=== PATIENT | female | born 1950 | race Caucasian/White ===

== ENCOUNTER 2017-06-20 22:28 | Outpatient (CLI) | payer MEDICARE, OTHER | END 2017-06-20 22:29 | disposition critical access hospital (66) | LOC: EMS 22:28 | PROVIDERS: ATTEND Surgery | DX: R00.2 Palpitations (principal); R42 Dizziness and giddiness; R20.0 Anesthesia of skin | CPT/HCPCS: A0425; A0429 ==

== ENCOUNTER 2017-06-20 22:41 | Inpatient (IN) | payer MEDICARE, OTHER ==
[2017-06-20] MEDS ORDERED: SODIUM CHLORIDE 0.9% 1,000 ML IV ONE (22:58)
--- NOTE | 2017-06-20 23:01 | ED Physician Documentation ---
History of Present Illness - Stated complaint Stated Complaint: RAPID HR - Chief complaint Chief Complaint: Cardiac - Additonal information Additional information: hx from pt 66 female hx crohns and subsequent hypokalmia with subsequent palp has had inc diarrhea recently (no blood, no bad food, no travel) this morning had what she believes was esophogeal spasm and asthma which was quite severe she had some int palpitations in the AM and then later in the day the palpitations became very rapid with associated weakness had some ankle edema simone yesterday but better today no new meds / med changes / caffeine / decong / any stimulants at all she took potassium in case that was the cause and also 4 baby asa [employer] she takes lomotil which contains atropine but not more than her usual daily dose which does not usually cause palp Review of Systems Constitutional: denies: Fever, Chills Cardiac: reports: Chest pain / pressure, Palpitations Respiratory: reports: Dyspnea GI: reports: Diarrhea (from her crohns). denies: Abdominal Pain, Nausea, Vomiting Musculoskeletal: reports: Extremity swelling (better today) Neurologic: reports: Generalized weakness Endocrine: denies: Easy bruising / bleeding Immunocompromised: denies: Immunocompromised PD PAST MEDICAL HISTORY - Past Medical History Cardiovascular: None Respiratory: Asthma, COPD Endocrine/Autoimmune: None GI: GERD, Other : Frequency HEENT: Other Psych: Depression, Anxiety Musculoskeletal: None Derm: None - Past Surgical History General: Appendectomy, Splenectomy, Colonoscopy, EGD, Other HEENT: Tonsil/Adenoidectomy - Present Medications Home Medications: Ambulatory Orders Medication Instructions Recorded Confirmed Amitriptyline HCl 100 mg PO DAILY 02/08/16 06/21/17 Diphenoxylate HCl/Atropine 2.5 mg PO TID PRN 02/08/16 06/21/17 [Lomotil 2.5-0.025 mg Tablet] Omeprazole 40 mg PO BID 02/08/16 06/21/17 Sucralfate 1 g PO QID 02/08/16 06/21/17 Venlafaxine HCl [Venlafaxine HCl 225 mg PO DAILY 02/08/16 06/21/17 ER] Fluticasone/Salmeterol [Advair 1 each IH BID #1 disk.w.dev 05/02/16 06/21/17 250-50 Diskus] Fluticasone/Salmeterol [Advair 1 puffs PO DAILY 06/21/17 06/21/17 250-50 Diskus] Potassium Gluconate 595 mg PO PRN PRN 06/21/17 06/21/17 - Allergies Allergies/Adverse Reactions: Allergies Allergy/AdvReac Type Severity Reaction Status Date / Time erythromycin base Allergy Cramps Verified 04/29/16 13:15 Penicillins Allergy Respiratory Verified 04/29/16 13:15 Sulfa (Sulfonamide Allergy Respiratory Verified 04/29/16 13:15 Antibiotics) - Social History Does the pt smoke?: No Smoking Status: Former smoker Does the pt drink ETOH?: Yes Does the pt have substance abuse?: No - Immunizations Immunizations are current?: Yes PD ED PE NORMAL - Vitals Vital signs reviewed: Yes (tachy tachypneic hypertensive) - General General: Alert and oriented X 3 - HEENT HEENT: PERRL - Neck Neck: Supple, no meningeal sign - Cardiac Cardiac: No: RRR (rapid regular) - Respiratory Respiratory: No respiratory distress, Clear bilaterally - Abdomen Abdomen: Soft, Non tender - Derm Derm: Normal color - Extremities Extremities: No deformity, Other (mild edema simone) Results - Vitals Vitals: Vital Signs - 24 hr 06/20/17 06/20/17 06/21/17 22:43 23:19 01:02 Temperature 36.5 C Heart Rate 120 H 126 H Respiratory 26 H 18 Rate Blood Pressure 157/123 H 135/87 H Blood Pressure 131/87 H [Left] O2 Saturation 100 99 06/21/17 06/21/17 06/21/17 01:22 02:38 03:15 Temperature Heart Rate 114 H 101 H 104 H Respiratory 18 14 21 Rate Blood Pressure 140/73 H 138/80 H 145/78 H Blood Pressure [Left] O2 Saturation 98 98 99 Oxygen O2 Source Room air - EKG (time done) 2251 Rate: Rate (enter#) Rhythm: Sinus tachycardia Ischemia: Non specific changes (some coving and slight ST elev V1 with associated Q wave and LVH) - Labs Labs: Microbiology 06/21/17 03:20 Clostridium difficile (PCR) - Final Stool 06/21/17 03:20 Campylobacter Antigen Assay - Final Stool Laboratory Tests 06/20/17 06/20/17 06/20/17 23:10 23:10 23:10 WBC 7.0 RBC 3.84 L Hgb 11.6 L Hct 35.1 L MCV 91.4 MCH 30.3 MCHC 33.2 RDW 15.7 H Plt Count 349 MPV 7.8 L Neut # 3.3 Lymph # 2.7 [place] # 0.8 Eos # 0.2 Baso # 0.1 Absolute Nucleated RBC 0.00 Nucleated RBCs 0.1 D-Dimer 276.7 H Sodium 139 Potassium 3.3 L Chloride 106 Carbon Dioxide 25 Anion Gap 8.0 BUN 12 Creatinine 0.6 Estimated GFR (MDRD) 100 Glucose 73 Lactic Acid Calcium 8.8 Magnesium Troponin I B-Natriuretic Peptide TSH Free T4 Urine Color Urine Clarity Urine pH Ur Specific [place] Urine Protein Urine Glucose (UA) Urine Ketones Urine Occult Blood Urine Nitrite Urine Bilirubin Urine Urobilinogen Ur Leukocyte Esterase Urine RBC Urine WBC Ur Squamous Epith Cells Urine Bacteria Ur Microscopic Review Urine Culture Comments 06/20/17 06/20/17 06/20/17 23:10 23:10 23:10 WBC RBC Hgb Hct MCV MCH MCHC RDW Plt Count MPV Neut # Lymph # [place] # Eos # Baso # Absolute Nucleated RBC Nucleated RBCs D-Dimer Sodium Potassium Chloride Carbon Dioxide Anion Gap BUN Creatinine Estimated GFR (MDRD) Glucose Lactic Acid Calcium Magnesium Troponin I < 0.04 B-Natriuretic Peptide 606 H TSH 6.26 H Free T4 Urine Color Urine Clarity Urine pH Ur Specific [place] Urine Protein Urine Glucose (UA) Urine Ketones Urine Occult Blood Urine Nitrite Urine Bilirubin Urine Urobilinogen Ur Leukocyte Esterase Urine RBC Urine WBC Ur Squamous Epith Cells Urine Bacteria Ur Microscopic Review Urine Culture Comments 06/20/17 06/20/17 06/21/17 23:10 23:10 02:00 WBC RBC Hgb Hct MCV MCH MCHC RDW Plt Count MPV Neut # Lymph # [place] # Eos # Baso # Absolute Nucleated RBC Nucleated RBCs D-Dimer Sodium Potassium Chloride Carbon Dioxide Anion Gap BUN Creatinine Estimated GFR (MDRD) Glucose Lactic Acid Calcium Magnesium 2.0 Troponin I B-Natriuretic Peptide TSH Free T4 1.04 Urine Color COLORLESS Urine Clarity CLEAR Urine pH 6.0 Ur Specific [place] <=1.005 Urine Protein NEGATIVE Urine Glucose (UA) NEGATIVE Urine Ketones TRACE Urine Occult Blood SMALL H Urine Nitrite NEGATIVE Urine Bilirubin NEGATIVE Urine Urobilinogen 0.2 (NORMAL) Ur Leukocyte Esterase NEGATIVE Urine RBC 6-10 H Urine WBC 0-3 Ur Squamous Epith Cells FEW Squamous Urine Bacteria Moderate H Ur Microscopic Review INDICATED Urine Culture Comments INDICATED 06/21/17 03:14 WBC RBC Hgb Hct MCV MCH MCHC RDW Plt Count MPV Neut # Lymph # [place] # Eos # Baso # Absolute Nucleated RBC Nucleated RBCs D-Dimer Sodium Potassium Chloride Carbon Dioxide Anion Gap BUN Creatinine Estimated GFR (MDRD) Glucose Lactic Acid 0.8 Calcium Magnesium Troponin I B-Natriuretic Peptide TSH Free T4 Urine Color Urine Clarity Urine pH Ur Specific [place] Urine Protein Urine Glucose (UA) Urine Ketones Urine Occult Blood Urine Nitrite Urine Bilirubin Urine Urobilinogen Ur Leukocyte Esterase Urine RBC Urine WBC Ur Squamous Epith Cells Urine Bacteria Ur Microscopic Review Urine Culture Comments - Rads (name of study) CXR Radiology: See rad report (mild cardiomegaly with pulm vascular congestion) CTPA Radiology: See rad report (no PE, possible interstital edema, patchy simone atelectasis or infiltrate and small right pleural effusion, mild cardiomegaly, post op changes) PD MEDICAL DECISION MAKING - ED course ED course: unexplained tachycardia has diarrhea so considered dehydration but not better with IVF and diarrhea is not new for her had CP and SOA so checked trop which was neg and CTPA which was neg for PE TSH is actually high so not hyperthyroid no fever cough etc to suggest infectious source - CXR was neg, but CT showed possible infiltrate so will add on a lactate - but pt has no cough no sig lyte abn, waiting on UA and added stool studies even after IVF, and then lopressor, still tachy - and symptomatic will admit for further eval and management UA + for bacteria - gave ab, added blood cx, maybe that is causing the tachycardia, pt allergic to penicillin bu has taken keflex so rx rocephin d/w hospitalist who agrees to admit and req tox screen (did not get done in ER but hospitalist service can add on to urine already collected) Departure - Departure Disposition: 66 [facility] DC/Xfer Clinical Impression: Tachycardia Discharge Date/Time: 06/21/17 05:14
[2017-06-20 23:23] LABS: BASOPHILS # (AUTO) 0.1 10^3/uL (0.0-0.1); BASOPHILS % (AUTO) 1.3 %; EOSINOPHILS # (AUTO) 0.2 10^3/uL (0.0-0.7); HCT - HEMATOCRIT 35.1 % (37.0-47.0); HGB - HEMOGLOBIN 11.6 g/dL (12.0-16.0); LYMPHOCYTES # (AUTO) 2.7 10^3/uL (1.5-3.5); MEAN CORPUSCULAR HEMOGLOBIN 30.3 pg (27.0-31.0); MEAN CORPUSCULAR HGB CONC 33.2 g/dL (32.0-36.0); MEAN CORPUSCULAR VOLUME 91.4 fL (81.0-99.0); MEAN PLATELET VOLUME 7.8 fL (7.9-10.8); MONOCYTES # (AUTO) 0.8 10^3/uL (0.0-1.0); MONOCYTES % (AUTO) 11.3 %; NEUTROPHILS # (AUTO) 3.3 10^3/uL (1.5-6.6); NEUTROPHILS % (AUTO) 46.4 %; NUCLEATED RED BLOOD CELLS AUTO 0.1 /100WBC; RED BLOOD COUNT 3.84 10^6/uL (4.20-5.40); RED CELL DISTRIBUTION WIDTH 15.7 % (12.0-15.0)
[2017-06-20 23:25] LABS: CALCIUM 8.8 mg/dL (8.5-10.3); CREATININE 0.6 mg/dL (0.4-1.0); POTASSIUM 3.3 mmol/L (3.5-5.0)
--- NOTE | 2017-06-20 23:33 | XRAY Preliminary Report ---
Exam: XR Chest 1 View IMPRESSION: 1. Mild cardiomegaly with pulmonary vascular congestion. [facility] SITE ID: [id number]
--- NOTE | 2017-06-20 23:36 | XRAY Report ---
EXAM: CHEST RADIOGRAPHY EXAM DATE: 06/20/2017 11:06 PM. CLINICAL HISTORY: Chest pain. COMPARISON: 06/12/2016. TECHNIQUE: 1 view. FINDINGS: Lungs/Pleura: Pulmonary vascular congestion. Chronic left gastric angle blunting. No alveolar consoli dation or pleural effusion. No pneumothorax. Mediastinum: Mild cardiomegaly. Postoperative changes. Other: None. IMPRESSION: 1. Mild cardiomegaly with pulmonary vascular congestion. [facility] Referring Provider Line: [phone] SITE ID: [id number]
[2017-06-21] MEDS ORDERED: LOPERAMIDE 2 MG CAPSULE PO STA ×2 (00:45→03:17)
[2017-06-21] MEDS ORDERED: LOPERAMIDE 2 MG CAPSULE PO ONE ×2 (00:52→03:30)
[2017-06-21] MEDS ORDERED: METOPROLOL 5 MG/5 ML VIAL IVP STA (01:13)
[2017-06-21] MEDS ORDERED: POTASSIUM BICARB 25 MEQ TABLET PO STA (01:14)
[2017-06-21] MEDS ORDERED: POTASSIUM BICARB 25 MEQ TABLET PO ONE (01:28)
[2017-06-21] MEDS ORDERED: METOPROLOL 5 MG/5 ML VIAL IVP ONE (01:28)
[2017-06-21] MEDS ORDERED: IOPAMIDOL-300 100 ML VIAL IVP ONE (02:15)
--- NOTE | 2017-06-21 02:35 | CT Preliminary Report ---
Exam: CT Chest Angio (PE) IMPRESSION: 1. No pulmonary emboli seen. 2. Possible interstitial edema. 3. Patchy bilateral atelectasis or infiltrate and small right pleural effusion. 4. Mild cardiomegaly. 5. Postoperative changes. There appears to be esophagectomy and gastric pull-through. [facility] SITE ID: [id number]
--- NOTE | 2017-06-21 02:38 | CT Report ---
EXAM: CT ANGIOGRAM CHEST EXAM DATE: 06/21/2017 02:20 AM. CLINICAL HISTORY: Tachycardia and tachypnea. Chest pain and shortness of breath. Elevated d-dimer. COMPARISON: None. TECHNIQUE: Routine helical imaging was performed through the chest in the pulmonary arterial phase. I V Contrast: Nonionic. Reconstructions: Coronal 3-D MIP reconstructions.Sagittal and coronal. In accordance with CT protocol optimization, one or more of the following dose reduction techniques w ere utilized for this exam: automated exposure control, adjustment of mA and/or KV based on patient s ize, or use of iterative reconstructive technique. FINDINGS: Pulmonary Arteries: Diagnostic quality: Adequate through the segmental arteries. No evidence for acute or chronic pulmona ry emboli. No evidence of right heart strain. Lungs/Pleura: Biapical scarring. Possible interstitial edema. Patchy bilateral atelectasis or infiltr ate. Small right pleural effusion. No pneumothorax. Mediastinum: Mild cardiomegaly. Normal sized mediastinal lymph nodes. There appears to be esophagecto my and gastric pull-through. Thoracic Aorta: Mild atherosclerosis. Ascending aorta measures 3.5 cm. No aortic dissection. Upper Abdomen: Unremarkable. Other: Osteopenia. Scoliosis. Old bilateral rib deformities. IMPRESSION: 1. No pulmonary emboli seen. 2. Possible interstitial edema. 3. Patchy bilateral atelectasis or infiltrate and small right pleural effusion. 4. Mild cardiomegaly. 5. Postoperative changes. There appears to be esophagectomy and gastric pull-through. [facility] Referring Provider Line: [phone] SITE ID: [id number]
[2017-06-21 02:42] LABS: BILIRUBIN,URINE NEGATIVE (NEGATIVE)
[2017-06-21 02:57] LABS: UA w/ MICROSCOPIC CHARGE YES; UR CULTURE IF IND INDICATED; WBC,URINE 0-3 /HPF (0-5)
[2017-06-21] MEDS ORDERED: cefTRIAXone 1 GM in SODIUM CHLORIDE 0.9% MINIBAG 100 ML IV STA (03:04)
[2017-06-21] MEDS ORDERED: SODIUM CHLORIDE 0.9% MINIBAG 100 ML IV ONE (03:13)
[2017-06-21] MEDS ORDERED: cefTRIAXone 1 GM VIAL ONE (03:13)
[2017-06-21] MEDS ORDERED: IPRATROPIUM 0.2 MG/ML NEB INH PRN (04:39)
[2017-06-21] MEDS ORDERED: SODIUM CHLORIDE 0.9% 1,000 ML IV ONE (04:41)
[2017-06-21] MEDS ORDERED: ZOLPIDEM 5 MG TABLET PO PRN (04:42)
[2017-06-21] MEDS ORDERED: ONDANSETRON 4 MG/2 ML VIAL IVP PRN (04:42)
[2017-06-21] MEDS ORDERED: MORPHINE 2 MG/ML SYRINGE IVP PRN (04:42)
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
[2017-06-21] MEDS: PANTOPRAZOLE 40 MG TABLET PO SCH (06:49)
[2017-06-21] MEDS: SUCRALFATE 1 GM/10 ML UDC PO SCH ×4 (06:49→21:38)
[2017-06-21] MEDS: SODIUM CHLORIDE FLUSH 0.9% 10 ML SYRINGE IVP SCH ×3 (06:49→19:45)
--- NOTE | 2017-06-21 07:20 | PROVIDER PROGRESS NOTE ---
Assessment/Plan - Problem List (1) Diarrhea due to malabsorption Assessment/Plan: acute. will advance diet as tolerated and pending stool studies. patient has IBD chronic with malabsorption (2) Hypokalemia due to loss of potassium Assessment/Plan: acute. will replace with oral and monitor electrolytes in the morning. (3) COPD (chronic obstructive pulmonary disease) Qualifiers: COPD type: COPD with acute lower respiratory infection Qualified Code(s): J44.0 - Chronic obstructive pulmonary disease with acute lower respiratory infection Assessment/Plan: chronic. continue on home medications of inhalers and RT support as needed with supplemental oxygen 2 liters NC. - Current Meds Current Meds: Current Medications Generic Name Dose Route Start Last Admin Trade Name Freq PRN Reason Stop Dose Admin Ipratropium [place] 0.5 mg 06/21/17 04:39 06/21/17 05:59 Atrovent INH 0.5 mg RTQ4H PRN Administration Dyspnea Pantoprazole Sodium 40 mg 06/21/17 07:00 06/21/17 06:49 Protonix PO 40 mg QDAC SHASHI Administration Sodium Chloride 10 ml 06/21/17 06:00 06/21/17 06:49 Normal Saline Flush 0.9% IVP 10 ml Q8HR SHASHI Administration Sucralfate 1 gm 06/21/17 07:00 06/21/17 06:49 Carafate PO 1 gm 0700,1100,1600,2200 SHASHI Administration - Lab Result Lab results reviewed: Yes Fish Bone Diagrams: 06/20/17 23:10 06/20/17 23:10 Other Lab Results: Abnormal Lab Results 06/20/17 06/20/17 06/20/17 23:10 23:10 23:10 RBC 3.84 10^6/uL L 10^6/uL (4.20-5.40) Hgb 11.6 g/dL L g/dL (12.0-16.0) Hct 35.1 % L % (37.0-47.0) RDW 15.7 % H % (12.0-15.0) MPV 7.8 fL L fL (7.9-10.8) D-Dimer 276.7 ng/mL H ng/mL (200.0-255.0) Potassium 3.3 mmol/L L mmol/L (3.5-5.0) B-Natriuretic Peptide TSH Urine Occult Blood Urine RBC Urine Bacteria 06/20/17 06/20/17 06/21/17 23:10 23:10 02:00 RBC Hgb Hct RDW MPV D-Dimer Potassium B-Natriuretic Peptide 606 pg/mL H pg/mL (5-100) TSH 6.26 uIU/mL H uIU/mL (0.34-5.60) Urine Occult Blood SMALL H (NEGATIVE) Urine RBC 6-10 /HPF H /HPF (0-5) Urine Bacteria Moderate /HPF H /HPF (None Seen) - EKG Results EKG Interpreted Independently: No EKG Comparison: Unchanged from prior EKG - Diagnostic Imaging Results Diagnostic Imaging Results: Final report reviewed - Additional Planning Condition/Complexity: Stable My Orders: My Active Orders 06/21/17 07:18 CRP - C-REACTIVE PROTEIN [CHEM] Stat MAGNESIUM [CHEM] Stat 06/21/17 08:00 Saccharomyces Boulardii [Florastor] 500 mg PO BIDWM Plan Discussed with:: Patient Time Spent: 31-60 minutes (Patient is needing another 24 hours before discharge. She has difficulty eating and swallowing and nutrition has been consulted.) Subjective - Subjective Patient Reports: Feeling Better, Resting Comfortably, Other (DIFFICULTY WITH SWALLOWING) Nursing Reports: Other (COMPLAINT OF HARD TIME SWALLOWING AND NOT WANTING TO EAT ) Objective Vital Signs: Vital Signs - 24 hr 06/21/17 06/21/17 06/21/17 04:51 05:28 06:00 Temperature 37.4 C Heart Rate 105 H 104 H Heart Rate [ 97 Brachial] Respiratory 18 17 18 Rate Blood Pressure 144/72 H Blood Pressure 145/76 H [Right Brachial artery] O2 Saturation 96 97 Oxygen O2 Source Room air I&O (Last 24 Hrs): Intake and Output Totals x24h 06/19/17 06/20/17 06/21/17 23:59 23:59 23:59 Intake Total 1000 Balance 1000 General: Alert, Oriented x3, Cooperative HEENT: Atraumatic, PERRLA, EOMI Neck: Supple, No JVD, No thyromegaly Lymphatic: no adenopathy Neuro: Alert, CN 2-12 Grossly Intact, Oriented Times 3 Cardiovascular: Regular rate, Normal S1, Normal S2 Respiratory: Chest non-tender, No respiratory distress Abdomen: Soft, No tenderness, No masses Extremities: No clubbing, No cyanosis, No edema, No tenderness/swelling Skin: No rashes, No breakdown, No significant lesion - Results Results: Laboratory Results WBC 7.0 x10^3/uL (4.8-10.8) 06/20/17 23:10 RBC 3.84 10^6/uL (4.20-5.40) L 06/20/17 23:10 Hgb 11.6 g/dL (12.0-16.0) L 06/20/17 23:10 Hct 35.1 % (37.0-47.0) L 06/20/17 23:10 MCV 91.4 fL (81.0-99.0) 06/20/17 23:10 MCH 30.3 pg (27.0-31.0) 06/20/17 23:10 MCHC 33.2 g/dL (32.0-36.0) 06/20/17 23:10 RDW 15.7 % (12.0-15.0) H 06/20/17 23:10 Plt Count 349 10^3/uL (130-450) 06/20/17 23:10 MPV 7.8 fL (7.9-10.8) L 06/20/17 23:10 Neut # 3.3 10^3/uL (1.5-6.6) 06/20/17 23:10 Lymph # 2.7 10^3/uL (1.5-3.5) 06/20/17 23:10 [place] # 0.8 10^3/uL (0.0-1.0) 06/20/17 23:10 Eos # 0.2 10^3/uL (0.0-0.7) 06/20/17 23:10 Baso # 0.1 10^3/uL (0.0-0.1) 06/20/17 23:10 Absolute Nucleated RBC 0.00 x10^3/uL 06/20/17 23:10 Nucleated RBCs 0.1 /100WBC 06/20/17 23:10 D-Dimer 276.7 ng/mL (200.0-255.0) H 06/20/17 23:10 Sodium 139 mmol/L (135-145) 06/20/17 23:10 Potassium 3.3 mmol/L (3.5-5.0) L 06/20/17 23:10 Chloride 106 mmol/L (101-111) 06/20/17 23:10 Carbon Dioxide 25 mmol/L (21-32) 06/20/17 23:10 Anion Gap 8.0 (6-13) 06/20/17 23:10 BUN 12 mg/dL (6-20) 06/20/17 23:10 Creatinine 0.6 mg/dL (0.4-1.0) 06/20/17 23:10 Estimated GFR (MDRD) 100 (>89) 06/20/17 23:10 Glucose 73 mg/dL (70-100) 06/20/17 23:10 Lactic Acid 0.8 mmol/L (0.5-2.2) 06/21/17 03:14 Calcium 8.8 mg/dL (8.5-10.3) 06/20/17 23:10 Magnesium 2.0 mg/dL (1.7-2.8) 06/20/17 23:10 Troponin I < 0.04 ng/mL (<0.49) 06/21/17 06:06 B-Natriuretic Peptide 606 pg/mL (5-100) H 06/20/17 23:10 TSH 6.26 uIU/mL (0.34-5.60) H 06/20/17 23:10 Free T4 1.04 ng/dL (0.58-1.64) 06/20/17 23:10 Urine Color COLORLESS 06/21/17 02:00 Urine Clarity CLEAR (CLEAR) 06/21/17 02:00 Urine pH 6.0 PH (5.0-7.5) 06/21/17 02:00 Ur Specific [place] <=1.005 (1.002-1.030) 06/21/17 02:00 Urine Protein NEGATIVE mg/dL (NEGATIVE) 06/21/17 02:00 Urine Glucose (UA) NEGATIVE mg/dL (NEGATIVE) 06/21/17 02:00 Urine Ketones TRACE mg/dL (NEGATIVE) 06/21/17 02:00 Urine Occult Blood SMALL (NEGATIVE) H 06/21/17 02:00 Urine Nitrite NEGATIVE (NEGATIVE) 06/21/17 02:00 Urine Bilirubin NEGATIVE (NEGATIVE) 06/21/17 02:00 Urine Urobilinogen 0.2 (NORMAL) E.U./dL (NORMAL) 06/21/17 02:00 Ur Leukocyte Esterase NEGATIVE (NEGATIVE) 06/21/17 02:00 Urine RBC 6-10 /HPF (0-5) H 06/21/17 02:00 Urine WBC 0-3 /HPF (0-5) 06/21/17 02:00 Ur Squamous Epith Cells FEW Squamous (<= Few) 06/21/17 02:00 Urine Bacteria Moderate /HPF (None Seen) H 06/21/17 02:00 Ur Microscopic Review INDICATED 06/21/17 02:00 Urine Culture Comments INDICATED 06/21/17 02:00 - Procedures Procedures: Procedures EXCISION OF ASCENDING COLON, ENDO, DIAGN (02/08/16) EXCISION OF DUODENUM, ENDO, DIAGN (02/08/16) EXCISION OF LOWER ESOPHAGUS, ENDO, DIAGN (02/08/16) EXCISION OF STOMACH, ENDO, DIAGN (02/08/16)
[2017-06-21] MEDS ORDERED: SODIUM CHLORIDE INHALATION 3 ML NEB INH PRN (07:47)
[2017-06-21] MEDS ORDERED: LEVALBUTEROL 1.25 MG INH PRN (07:47)
[2017-06-21 07:52] LABS: MAGNESIUM 1.8 mg/dL (1.7-2.8)
[2017-06-21] MEDS ORDERED: VENLAFAXINE HCL 225 MG PO SCH (09:00)
[2017-06-21] MEDS ORDERED: NON FORMULARY MED (Amitriptyline Hcl [Amitriptyline Hcl] 100 MG) PO SCH (09:00)
[2017-06-21] MEDS ORDERED: SUCRALFATE 1 GM PO SCH (09:00)
[2017-06-21] MEDS: AZITHROMYCIN 250 MG TABLET PO SCH (09:28)
[2017-06-21] MEDS: VENLAFAXINE ER 75 MG CAPSULE PO SCH (09:28)
[2017-06-21] MEDS: SACCHAROMYCES BOULARDII 250 MG CAPSULE PO SCH ×2 (09:28→16:52)
[2017-06-21] MEDS: CHOLECALCIFEROL 5,000 UNIT CAPSULE PO SCH (09:28)
[2017-06-21] MEDS: HEPARIN 5,000 UNIT/ML VIAL SUBQ SCH ×2 (09:32→21:47)
[2017-06-21] MEDS: BUDESONIDE 0.5 MG/2 ML NEB INH SCH ×2 (10:57→19:40)
[2017-06-21] MEDS: FORMOTEROL FUMARATE NEB 20 MCG/2 ML INH SCH ×2 (10:57→19:40)
[2017-06-21] MEDS ORDERED: SODIUM CHLORIDE FLUSH 0.9% 10 ML SYRINGE IVP ONE (12:39)
[2017-06-21] MEDS: ALPRAZolam 0.25 MG TABLET PO PRN (17:51)
[2017-06-21] MEDS ORDERED: MAGNESIUM SULFATE 2 GRAM 50 ML IV ONE (19:00)
[2017-06-21] MEDS: AMITRIPTYLINE 25 MG TABLET PO SCH (21:37)
[2017-06-21] MEDS: SODIUM CHLORIDE FLUSH 0.9% 10 ML SYRINGE IVP PRN ×2 (21:37→22:19)
[2017-06-21] MEDS: cefTRIAXone 1 GM in SODIUM CHLORIDE 0.9% MINIBAG 100 ML IV SCH (21:37)
[2017-06-21] MEDS: ACETAMINOPHEN 325 MG TABLET PO PRN (21:55)
[2017-06-22 05:48] LABS: BASOPHILS # (AUTO) 0.1 10^3/uL (0.0-0.1); BASOPHILS % (AUTO) 1.2 %; EOSINOPHILS # (AUTO) 0.2 10^3/uL (0.0-0.7); EOSINOPHILS % (AUTO) 3.1 %; HCT - HEMATOCRIT 36.3 % (37.0-47.0); HGB - HEMOGLOBIN 12.2 g/dL (12.0-16.0); LYMPHOCYTES # (AUTO) 2.7 10^3/uL (1.5-3.5); LYMPHOCYTES % (AUTO) 46.5 %; MEAN CORPUSCULAR HEMOGLOBIN 30.9 pg (27.0-31.0); MEAN CORPUSCULAR HGB CONC 33.5 g/dL (32.0-36.0); MEAN CORPUSCULAR VOLUME 92.3 fL (81.0-99.0); MONOCYTES # (AUTO) 0.6 10^3/uL (0.0-1.0); MONOCYTES % (AUTO) 10.3 %; NEUTROPHILS # (AUTO) 2.3 10^3/uL (1.5-6.6); NEUTROPHILS % (AUTO) 38.9 %; NUCLEATED RED BLOOD CELLS AUTO 0.1 /100WBC; RED BLOOD COUNT 3.93 10^6/uL (4.20-5.40); RED CELL DISTRIBUTION WIDTH 15.7 % (12.0-15.0); UNCORRECTED WHITE BLOOD COUNT 5.8 x10^3/uL; WHITE BLOOD COUNT 5.8 x10^3/uL (4.8-10.8)
[2017-06-22 05:57] LABS: ALBUMIN/GLOBULIN RATIO 1.4 (1.0-2.2); BILIRUBIN,TOTAL 0.4 mg/dL (0.2-1.0); CALCIUM 8.8 mg/dL (8.5-10.3); CREATININE 0.5 mg/dL (0.4-1.0); MAGNESIUM 2.3 mg/dL (1.7-2.8); PHOSPHORUS 4.5 mg/dL (2.5-4.6); POTASSIUM 3.2 mmol/L (3.5-5.0); TOTAL PROTEIN 6.2 g/dL (6.7-8.2)
[2017-06-22] MEDS: PANTOPRAZOLE 40 MG TABLET PO SCH (06:04)
[2017-06-22] MEDS: ACETAMINOPHEN 325 MG TABLET PO PRN (06:04)
[2017-06-22] MEDS: SUCRALFATE 1 GM/10 ML UDC PO SCH ×4 (06:04→21:28)
[2017-06-22] MEDS: SODIUM CHLORIDE FLUSH 0.9% 10 ML SYRINGE IVP SCH ×3 (06:04→21:28)
[2017-06-22] MEDS: FORMOTEROL FUMARATE NEB 20 MCG/2 ML INH SCH ×2 (07:30→19:45)
[2017-06-22] MEDS: BUDESONIDE 0.5 MG/2 ML NEB INH SCH ×2 (07:30→19:45)
[2017-06-22] MEDS: SACCHAROMYCES BOULARDII 250 MG CAPSULE PO SCH ×2 (08:47→16:15)
[2017-06-22] MEDS: AZITHROMYCIN 250 MG TABLET PO SCH (08:48)
[2017-06-22] MEDS: CHOLECALCIFEROL 5,000 UNIT CAPSULE PO SCH (08:48)
[2017-06-22] MEDS: VENLAFAXINE ER 75 MG CAPSULE PO SCH (08:49)
[2017-06-22] MEDS: HEPARIN 5,000 UNIT/ML VIAL SUBQ SCH ×2 (08:58→21:29)
[2017-06-22] MEDS: POTASSIUM CHLORIDE 20 MEQ TABLET PO SCH (10:01)
[2017-06-22] MEDS: BUTALB/ACETAM/CAFF 50/325/40MG TABLET PO PRN ×3 (12:31→21:27)
--- NOTE | 2017-06-22 18:53 | PROVIDER PROGRESS NOTE ---
Subjective - Prog Note Date Prog Note Date: 06/22/17 Prog Note Time: 18:51 - Subjective Pt reports feeling: Improved Subjective: Patient was seen at bedside for followup for diarrhea and generalized weakness. she is eating better. she is concerned about what she should be eating when she is discharged. she has a lower potassium today but she states she has had that before. she has some mild nausea and a headache but no vomiting or diarrhea or constipation. Current Medications - Current Medications Current Medications: Active Medications Generic Name Dose Route Start Last Admin Trade Name Freq PRN Reason Stop Dose Admin Acetaminophen 650 mg 06/21/17 04:42 06/22/17 06:04 Tylenol PO 650 mg Q4HR PRN Administration Pain 1 to 4 Acetaminophen/Butalbital/Caffeine 1 tab 06/22/17 11:20 06/22/17 16:16 Fioricet PO 1 tab Q4HR PRN Administration HEADACHE Alprazolam 0.5 mg 06/21/17 17:15 06/21/17 17:51 Xanax PO 0.5 mg BID PRN Administration Anxiety Amitriptyline HCl 100 mg 06/21/17 21:00 06/21/17 21:37 Elavil PO 100 mg QPM SHASHI Administration Budesonide 0.5 mg 06/21/17 08:00 06/22/17 07:30 Pulmicort INH 0.5 mg RTBID SHASHI Administration Cholecalciferol 5,000 unit 06/21/17 09:00 06/22/17 08:48 Vitamin D3 PO 5,000 unit DAILY SHASHI Administration Formoterol Fumarate 20 mcg 06/21/17 08:00 06/22/17 07:30 Perforomist INH 20 mcg RTBID SHASHI Administration Heparin Sodium (Porcine) 5,000 unit 06/21/17 09:00 06/22/17 08:58 SUBQ 5,000 unit BID SHASHI Administration Ceftriaxone Sodium 1 gm/ 100 mls @ 200 mls/hr 06/21/17 21:00 06/21/17 21:37 Sodium Chloride IV 200 mls/hr DAILY@2100 SHASHI Administration Levalbuterol HCl 1.25 mg 06/21/17 07:47 Xopenex INH Q4H PRN Wheezing Morphine Sulfate 2 mg 06/21/17 04:42 Morphine IVP Q2H PRN Pain 8 to 10 Potassium Gluconate 1 each 06/21/17 05:33 595 Mg PO PRN PRN hypokalemia Potassium Chloride 20 meq 06/22/17 10:00 06/22/17 10:01 K-Dur PO 20 meq DAILYWM SHASHI Administration Saccharomyces Boulardii 500 mg 06/21/17 08:00 06/22/17 16:15 Florastor PO 500 mg BIDWM SHASHI Administration Sodium Chloride 10 ml 06/21/17 04:42 06/21/17 22:19 Normal Saline Flush 0.9% IVP 10 ml PRN PRN Administration NEEDED PER PROVIDER ORDERS Sodium Chloride 10 ml 06/21/17 06:00 06/22/17 13:23 Normal Saline Flush 0.9% IVP 10 ml Q8HR SHASHI Administration Sodium Chloride 3 ml 06/21/17 07:47 Normal Saline INH PRN PRN Levalbuterol treatment Sucralfate 1 gm 06/21/17 07:00 06/22/17 16:15 Carafate PO 1 gm 0700,1100,1600,2200 SHASHI Administration Venlafaxine HCl 225 mg 06/21/17 09:00 06/22/17 08:49 Effexor Er PO 225 mg DAILY SHASHI Administration Zolpidem Tartrate 5 mg 06/21/17 04:42 Ambien PO QPM PRN Insomnia Amitriptyline HCl 100 mg PO DAILY 02/08/16 Diphenoxylate HCl/Atropine [Lomotil 2.5-0.025 mg Tablet] 2.5 mg PO TID PRN 02/07 Omeprazole 40 mg PO BID 02/08/16 Sucralfate 1 g PO QID 02/08/16 Venlafaxine HCl [Venlafaxine HCl ER] 225 mg PO DAILY 02/08/16 Fluticasone/Salmeterol [Advair 250-50 Diskus] 1 puffs PO DAILY 06/21/17 Potassium Gluconate 595 mg PO PRN PRN 06/21/17 Objective - Vital Signs/Intake & Output Reviewed Vital Signs: Yes Vital Signs: Vital Signs x48h Temp Pulse Resp BP Pulse Ox 06/22/17 15:49 37.1 C 91 17 132/64 H 95 06/22/17 13:44 102 H 118/62 Intake & Output: Intake & Output 06/19/17 06/20/17 06/21/1716/17 23:59 23:59 23:59 23:59 Intake Total 2860 780 Output Total 1050 600 Balance 1810 180 - Objective General Appearance: positive: No acute distress, Alert Eyes Bilateral: positive: Normal inspection, PERRL, EOMI ENT: positive: ENT inspection nml, Pharynx nml, No signs of dehydration Neck: positive: Nml inspection, Thyroid nml, No JVD, Trachea midline Respiratory: positive: Chest non-tender, No respiratory distress, Breath sounds nml Cardiovascular: positive: Regular rate & rhythm, No murmur, No gallop Rectal: positive: Non-tender Back: positive: Nml inspection Skin: positive: Color nml, No rash, Warm, Dry Extremities: positive: Non-tender, Full ROM, Nml appearance Neurologic/Psychiatric: positive: Oriented x3, CN's nml (2-12), Motor nml, Sensation nml, Mood/affect nml (patient plans to discharge tomorrow) - Lab Results Fish Bones: 06/22/17 05:30 06/22/17 05:30 Other Labs: Lab Results x24hrs 06/22/17 06/22/17 Range/Units 05:30 05:30 WBC 5.8 (4.8-10.8) x10^3/uL RBC 3.93 L (4.20-5.40) 10^6/uL Hgb 12.2 (12.0-16.0) g/dL Hct 36.3 L (37.0-47.0) % MCV 92.3 (81.0-99.0) fL MCH 30.9 (27.0-31.0) pg MCHC 33.5 (32.0-36.0) g/dL RDW 15.7 H (12.0-15.0) % Plt Count 328 (130-450) 10^3/uL MPV 8.0 (7.9-10.8) fL Neut # 2.3 (1.5-6.6) 10^3/uL Lymph # 2.7 (1.5-3.5) 10^3/uL [place] # 0.6 (0.0-1.0) 10^3/uL Eos # 0.2 (0.0-0.7) 10^3/uL Baso # 0.1 (0.0-0.1) 10^3/uL Absolute Nucleated RBC 0.01 x10^3/uL Nucleated RBCs 0.1 /100WBC Sodium 140 (135-145) mmol/L Potassium 3.2 L (3.5-5.0) mmol/L Chloride 101 (101-111) mmol/L Carbon Dioxide 31 (21-32) mmol/L Anion Gap 8.0 (6-13) BUN 6 (6-20) mg/dL Creatinine 0.5 (0.4-1.0) mg/dL Estimated GFR (MDRD) 123 (>89) Glucose 96 (70-100) mg/dL Calcium 8.8 (8.5-10.3) mg/dL Phosphorus 4.5 (2.5-4.6) mg/dL Magnesium 2.3 (1.7-2.8) mg/dL Total Bilirubin 0.4 (0.2-1.0) mg/dL AST 26 (10-42) IU/L ALT 12 (10-60) IU/L Alkaline Phosphatase 82 (42-121) IU/L Total Protein 6.2 L (6.7-8.2) g/dL Albumin 3.6 (3.2-5.5) g/dL Globulin 2.6 (2.1-4.2) g/dL Albumin/Globulin Ratio 1.4 (1.0-2.2) Assessment/Plan - Problem List (1) Diarrhea due to malabsorption Impression: improving. continue with IVF for hydration and advance diet as tolerated. encourage oral intake. continue with probiotics (2) Hypokalemia due to loss of potassium Impression: acute. replace with oral supplementation and recheck levels in the morning lab draws (3) COPD (chronic obstructive pulmonary disease) Impression: chronic. continue with inhalers and supplemental oxygen as needed [place] Qualifiers: COPD type: COPD with acute lower respiratory infection Qualified Code(s): J44.0 - Chronic obstructive pulmonary disease with acute lower respiratory infection
[2017-06-22] MEDS: AMITRIPTYLINE 25 MG TABLET PO SCH (21:27)
[2017-06-22] MEDS: cefTRIAXone 1 GM in SODIUM CHLORIDE 0.9% MINIBAG 100 ML IV SCH (21:28)
[2017-06-22] MEDS: SODIUM CHLORIDE FLUSH 0.9% 10 ML SYRINGE IVP PRN (21:28)
[2017-06-23] MEDS: ALPRAZolam 0.25 MG TABLET PO PRN (00:40)
[2017-06-23] MEDS: SUCRALFATE 1 GM/10 ML UDC PO SCH (06:00)
[2017-06-23] MEDS: SODIUM CHLORIDE FLUSH 0.9% 10 ML SYRINGE IVP SCH (06:00)
--- NOTE | 2017-06-23 07:28 | Discharge Plan ---
Discharge Plan Disposition: 01 Home, Self Care Condition: Good Prescriptions: Ubidecarenone/Vitamin E Mixed [Lda84-Qru E 100 mg-10 Unit Sfg] 1 each PO BID # 60 capsule Magnesium Oxide [Magnesium] 400 mg PO BID #60 capsule Multivit with Calcium,Iron,Min [Multiple Vitamins For Women] 1 each PO DAILY # 30 tablet Cholecalciferol [Vitamin D3] 5,000 unit PO BID #60 capsule Alprazolam [Xanax] 0.25 mg PO QPM #10 tablet Diet: Regular (for malabsorption- avoid dairy and gluten when having symptoms of irritable bowel. Avoid all refined sugar and processed foods always.) Activity Restrictions: No Restrictions Shower Restrictions: No Driving Restrictions: No Weight Bearing: Full Weight Instruction Topics: IBS Ch Additional Instructions or Follow Up instructions: Please take all home medications as prescribed. You have been given a prescription for medication for anxiety to help when you have a IBS flair. You will need to talk to you primary care provider to help with suggestions for alternative therapy for stress management and anxiety to help reduce the incidence of IBS flairs. Eat a diet that is free of processed foods and refined sugar including sodas. Avoid eating at fast food restaurants that are high in fat and empty calories. They have alot of refined sugar and processed food products. You need to try to cook more at home using more organic food products. Avoid gluten, dairy and soy when you are having a IBS flair. These products can cause worsening inflammation and your bowel needs to rest during this time to heal. If you experience signs of abdominal pain or diarrhea, go back to the noninflammatory diet for a few days until your digestion improves. Get plenty of exercise daily. Walking is a great way to improve mood and releases endorphins that promote healing and good health. It also improves mood and induces sleep. Melatonin is also a natural sleep inducer and can be bought over the counter. Please see your primary care provider and GI specialist within the first week of discharge for followup from the diarrhea and recheck any labs that were low like your potassium level No Smoking: If you smoke, Please STOP! Call for help.
[2017-06-23] MEDS: BUDESONIDE 0.5 MG/2 ML NEB INH SCH (07:30)
[2017-06-23] MEDS: FORMOTEROL FUMARATE NEB 20 MCG/2 ML INH SCH (07:30)
--- NOTE | 2017-06-23 07:43 | DISCHARGE SUMMARY ---
"Discharge Summary Admit Date: 06/21/17 Condition at Discharge: Good Discharge Disposition: 01 Home, Self Care Discharge Facility Name: home - DIAGNOSES Admission Diagnoses: 1. Acute intractable diarrhea with chronic IBS 2. Acute hypokalemia from losses 3. Chronic anxiety, unspecified 4. Acute palpatations with electrolyte losses 5. Chronic malabsorption with malnutrition secondary to IBS Discharge Diagnoses with Status of Each Condition: 1. Acute intractable diarrhea with chronic IBS 2. Acute hypokalemia from losses from malabsorption from acute on chronic diarrhea 3. Chronic anxiety, unspecified 4. Acute palpatations with electrolyte losses from IBS 5. Chronic malabsorption with malnutrition secondary to esophagestomy and IBS 6. Chronic overuse of home medications for chronic IBS 7. UTI, possible with EColi organism - HPI History of Present Illness: hx from pt 66 year old female hx IBD and subsequent hypokalmia with subsequent palpations has had inc diarrhea recently (no blood, no bad food, no travel) this morning had what she believes was esophogeal spasm and asthma which was quite severe she had some intermittent palpitations in the AM and then later in the day the palpitations became very rapid with associated weakness had some ankle edema bilaterally yesterday but better today no new meds / med changes / caffeine / decongestants / any stimulants at all she took potassium in case that was the cause and also 4 baby asa [employer]IS she takes lomotil which contains atropine but not more than her usual daily dose which does not usually cause palpations Admitted for diarrhea and hypokalemia with palpations - CONSULTS | PROCEDURES Consultations: physical therapy, nurtritionist Procedures: CTA of chest: no PE, small pleural effusion on left poss small infiltrate Chest xray: cardiomyopathy, pleural effusions - HOSPITAL COURSE Hospital Course: Patient is a 66 year old female who was admitted with intractable diarrhea and low potassium from the ER. She has been seen for similar problems related to past esophagectomy and IBD. She had been taking immodium for the diarrhea. She was started on IVF NS for rehydration. She was provided a nutrition consult for the malabsorption and counseled on daily diet. She was given potassium supplementation both oral and IV. She takes other home medications for anxiety and pain which were continued inpatient. She was given xanax for the anxiety she had inpatient. She was counseled on avoiding refined sugars and processed foods. She verbally understood what she should be eating daily. She has a long standing history of medication and diet noncompliance and will need close supervision at home. She continued on home medications for sleep and IBD. A urinalysis was done in the ER and was contaminated that did grow out EColi that was related to the contamination of stool. She was not symptomatic. She continued on her inhaler and had duoneb treatments per RT and supplemental oxygen 2 liters NC. chest xray showed a questionable pleural effusion/ infiltrate however patient remained afebrile with no shortness of breath and no worsening white count. Her electrolytes and CBC were monitored with daily lab draws. Her potassium improved on the day of discharge and was stable enough to go home on daily oral supplemets. Her daughter was to pick her up and take her home at discharge. A phone conversation occurred between this author and the daughter the day before discharge regarding the patients diet noncompliance. daughter states she would make sure to help the patient maintain diet compliance. Patient was given several supplements at discharge including vitamin D, MVI, magnesium, potassium and CoQ10. - ALLERGIES Allergies/Adverse Reactions: Allergies Allergy/AdvReac Type Severity Reaction Status Date / Time erythromycin base Allergy Cramps Verified 04/29/16 13:15 Penicillins Allergy Respiratory Verified 04/29/16 13:15 Sulfa (Sulfonamide Allergy Respiratory Verified 04/29/16 13:15 Antibiotics) - MEDICATIONS Home Medications: Ambulatory Orders Medication Instructions Recorded Confirmed Amitriptyline HCl 100 mg PO DAILY 02/08/16 06/21/17 Sucralfate 1 g PO QID 02/08/16 06/21/17 Venlafaxine HCl [Venlafaxine HCl 225 mg PO DAILY 02/08/16 06/21/17 ER] Fluticasone/Salmeterol [Advair 1 each IH BID #1 disk.w.dev 05/02/16 06/21/17 250-50 Diskus] Fluticasone/Salmeterol [Advair 1 puffs PO DAILY 06/21/17 06/21/17 250-50 Diskus] Potassium Gluconate 595 mg PO PRN PRN 06/21/17 06/21/17 Alprazolam [Xanax] 0.25 mg PO QPM #10 tablet 06/23/17 Budesonide [Pulmicort] 0.5 mg INH RTBID neb 06/23/17 Cholecalciferol [Vitamin D3] 5,000 unit PO BID #60 capsule 06/23/17 Magnesium Oxide [Magnesium] 400 mg PO BID #60 capsule 06/23/17 Multivit with Calcium,Iron,Min 1 each PO DAILY #30 tablet 06/23/17 [Multiple Vitamins For Women] Ubidecarenone/Vitamin E Mixed 1 each PO BID #60 capsule 06/23/17 [Eei84-Hts E 100 mg-10 Unit Sfg] - PHYSICAL EXAM AT DISCHARGE General Appearance: positive: No acute distress, Alert Eyes Bilateral: positive: Normal inspection, PERRL, EOMI ENT: positive: ENT inspection nml, Pharynx nml, No signs of dehydration Neck: positive: Nml inspection, Thyroid nml, No JVD, Trachea midline Respiratory: positive: Chest non-tender, No respiratory distress, Breath sounds nml Cardiovascular: positive: No murmur, No gallop. negative: JVD present Peripheral Pulses: positive: 2+ Abdomen: positive: Non-tender, No organomegaly, Nml bowel sounds, No distention. negative: Guarding, Rebound Rectal: positive: Non-tender Back: positive: Nml inspection Skin: positive: Color nml, No rash, Warm, Dry Extremities: positive: Non-tender, Full ROM, Nml appearance Neurologic/Psychiatric: positive: Oriented x3, CN's nml (2-12), Motor nml, Sensation nml, Mood/affect nml - LABS Result Diagrams: 06/23/17 08:26 06/23/17 08:26 Other Lab Results: Abnormal Lab Results 06/21/17 06/22/17 06/22/17 06:06 05:30 05:30 RBC 3.93 10^6/uL L 10^6/uL (4.20-5.40) Hct 36.3 % L % (37.0-47.0) RDW 15.7 % H % (12.0-15.0) Potassium 3.2 mmol/L L mmol/L (3.5-5.0) Total Protein 6.2 g/dL L g/dL (6.7-8.2) TSH 6.41 uIU/mL H uIU/mL (0.34-5.60) - DIAGNOSTIC IMAGING Diagnostic Imaging Results: Final report reviewed - FOLLOW UP Follow Up: Patient was instructed to followup with primary care provider within one week of discharge. She was given instruction for diet for IBS and instructed to followup with GI within one week of discharge. Patient to go home with daughter and understands verbally instructions given. - TIME SPENT Time Spent in Discharge (Minutes): 45 (for assessment and education planning)"
[2017-06-23 07:57] VITALS: BP 129/60
[2017-06-23 09:15] LABS: BASOPHILS # (AUTO) 0.1 10^3/uL (0.0-0.1); BASOPHILS % (AUTO) 1.1 %; EOSINOPHILS # (AUTO) 0.2 10^3/uL (0.0-0.7); EOSINOPHILS % (AUTO) 4.5 %; HCT - HEMATOCRIT 35.9 % (37.0-47.0); HGB - HEMOGLOBIN 11.9 g/dL (12.0-16.0); LYMPHOCYTES # (AUTO) 2.1 10^3/uL (1.5-3.5); LYMPHOCYTES % (AUTO) 39.9 %; MEAN CORPUSCULAR HEMOGLOBIN 30.4 pg (27.0-31.0); MEAN CORPUSCULAR HGB CONC 33.3 g/dL (32.0-36.0); MEAN CORPUSCULAR VOLUME 91.3 fL (81.0-99.0); MEAN PLATELET VOLUME 8.4 fL (7.9-10.8); MONOCYTES # (AUTO) 0.6 10^3/uL (0.0-1.0); NEUTROPHILS # (AUTO) 2.3 10^3/uL (1.5-6.6); NEUTROPHILS % (AUTO) 43.5 %; NUCLEATED RED BLOOD CELLS AUTO 0.1 /100WBC; RED BLOOD COUNT 3.93 10^6/uL (4.20-5.40); RED CELL DISTRIBUTION WIDTH 15.5 % (12.0-15.0); UNCORRECTED WHITE BLOOD COUNT 5.2 x10^3/uL; WHITE BLOOD COUNT 5.2 x10^3/uL (4.8-10.8)
[2017-06-23 09:26] LABS: ALBUMIN/GLOBULIN RATIO 1.3 (1.0-2.2); BILIRUBIN,TOTAL 0.4 mg/dL (0.2-1.0); CALCIUM 8.8 mg/dL (8.5-10.3); CREATININE 0.5 mg/dL (0.4-1.0); POTASSIUM 3.3 mmol/L (3.5-5.0); TOTAL PROTEIN 6.4 g/dL (6.7-8.2)
[2017-06-23] MEDS: SACCHAROMYCES BOULARDII 250 MG CAPSULE PO SCH (10:06)
[2017-06-23] MEDS: VENLAFAXINE ER 75 MG CAPSULE PO SCH (10:06)
[2017-06-23] MEDS: HEPARIN 5,000 UNIT/ML VIAL SUBQ SCH (10:06)
[2017-06-23] MEDS: POTASSIUM CHLORIDE 20 MEQ TABLET PO SCH (10:07)
[2017-06-23] MEDS: CHOLECALCIFEROL 5,000 UNIT CAPSULE PO SCH (10:07)
[2017-06-23] MEDS ORDERED: SACCHAROMYCES BOULARDII 250 MG CAPSULE PO SCH (17:00)
== END 2017-06-23 11:33 | disposition home or self-care (01) | DRG 392 ==
LOC: EDUNIT# → ED 22:41 → MS2 06-21 04:42
PROVIDERS: ADMIT Internal Medicine; ATTEND Nurse Practitioner
DX: R00.0 Tachycardia, unspecified (principal); F32.9 Major depressive disorder, single episode, unspecified; K58.0 Irritable bowel syndrome with diarrhea; K90.9 Intestinal malabsorption, unspecified; R19.7 Diarrhea, unspecified; Z87.891 Personal history of nicotine dependence; N39.0 Urinary tract infection, site not specified; Z68.1 Body mass index [BMI] 19.9 or less, adult; E87.6 Hypokalemia; E86.0 Dehydration; F41.9 Anxiety disorder, unspecified; R00.2 Palpitations; B96.20 Unspecified Escherichia coli [E. coli] as the cause of diseases classified elsewhere; K22.0 Achalasia of cardia; J44.9 Chronic obstructive pulmonary disease, unspecified; K21.9 Gastro-esophageal reflux disease without esophagitis; R13.19 Other dysphagia; M81.0 Age-related osteoporosis without current pathological fracture; Z91.14 Patient's other noncompliance with medication regimen; Z90.49 Acquired absence of other specified parts of digestive tract; Z91.11 Patient's noncompliance with dietary regimen; Z87.01 Personal history of pneumonia (recurrent)
CPT/HCPCS: 36415; 71010; 71275; 80048; 80053; 81001; 81003; 83605; 83735; 83880; 84100; 84439; 84443; 84481; 84484; 85025; 85379; 86140; 87040; 87045; 87046; 87086; 87493; 93005; 93306; 94640; 96361; 96365; 96375; 99283; 99284; 99285

== ENCOUNTER 2017-07-27 18:25 | Emergency (ER) | payer MEDICARE, OTHER ==
[2017-07-27] MEDS ORDERED: IPRATROPIUM/ALBUTEROL 3 ML NEB INH STA (19:04)
[2017-07-27] MEDS ORDERED: IPRATROPIUM/ALBUTEROL 3 ML NEB INH ONE ×2 (19:23→19:36)
--- NOTE | 2017-07-27 20:35 | XRAY Preliminary Report ---
Exam: XR CHEST 2 VIEW PA/LAT IMPRESSION: 1. Stable, abnormal exam. Indeterminant as regards to the finding in the superior segment right lower lobe has to whether this represents chronic low-grade infection versus recurrent pneumonia. CT appea judi and stability over the past 14 months is encouraging that this is less likely to represent a se misolid low-grade lung cancer. Follow-up chest CT in 6 months recommended to continue monitoring. 2. Mild cardiomegaly. [facility] SITE ID: [id number]
[2017-07-27 20:42] LABS: BASOPHILS # (AUTO) 0.2 10^3/uL (0.0-0.1); BASOPHILS % (AUTO) 2.4 %; EOSINOPHILS # (AUTO) 0.2 10^3/uL (0.0-0.7); EOSINOPHILS % (AUTO) 3.2 %; HCT - HEMATOCRIT 36.5 % (37.0-47.0); HGB - HEMOGLOBIN 12.1 g/dL (12.0-16.0); LYMPHOCYTES # (AUTO) 1.8 10^3/uL (1.5-3.5); LYMPHOCYTES % (AUTO) 27.4 %; MEAN CORPUSCULAR HEMOGLOBIN 30.3 pg (27.0-31.0); MEAN CORPUSCULAR HGB CONC 33.1 g/dL (32.0-36.0); MEAN CORPUSCULAR VOLUME 91.8 fL (81.0-99.0); MEAN PLATELET VOLUME 7.9 fL (7.9-10.8); MONOCYTES # (AUTO) 0.7 10^3/uL (0.0-1.0); NEUTROPHILS # (AUTO) 3.8 10^3/uL (1.5-6.6); NUCLEATED RED BLOOD CELLS AUTO 0.1 /100WBC; RED BLOOD COUNT 3.98 10^6/uL (4.20-5.40); RED CELL DISTRIBUTION WIDTH 15.6 % (12.0-15.0); UNCORRECTED WHITE BLOOD COUNT 6.7 x10^3/uL; WHITE BLOOD COUNT 6.7 x10^3/uL (4.8-10.8)
--- NOTE | 2017-07-27 20:42 | XRAY Report ---
EXAM: CHEST RADIOGRAPHY EXAM DATE: 07/27/2017 08:13 p.m. CLINICAL HISTORY: Chronic obstructive pulmonary disease. Shortness of breath. Cough. COMPARISON: Chest CTA 07/07/2017. Chest CTA 06/21/2017. Two-view chest 05/30/2016. Two-view chest . TECHNIQUE: 2 views. FINDINGS: Lungs/Pleura: Overexpanded. Extensive emphysematous changes. The reticulonodular density in the super ior segment of the right upper lobe is unchanged since the 05/30/2016 chest x-ray. It was much greate r on the earliest chest x-ray available 04/29/2016. No effusions, vascular congestion nor pneumothorax. Mediastinum: Stable mild cardiomegaly. No mediastinal shift. Other: None. IMPRESSION: 1. Stable, abnormal exam. Indeterminant as regards to the finding in the superior segment of the righ t lower lobe as to whether this represents a chronic low-grade infection versus recurrent pneumonia(s ). CT appearance and stability over the past 14 months is encouraging that this is less likely to rep resent a semi-solid low-grade lung cancer. Follow-up chest CT in 6 months recommended to continue mon itoring as clinically indicated. 2. Mild cardiomegaly. [facility] Referring Provider Line: [phone] SITE ID: [id number]
[2017-07-27 20:53] LABS: ALBUMIN/GLOBULIN RATIO 1.2 (1.0-2.2); BILIRUBIN,TOTAL 0.7 mg/dL (0.2-1.0); CALCIUM 9.2 mg/dL (8.5-10.3); CREATININE 0.7 mg/dL (0.4-1.0); TOTAL PROTEIN 6.9 g/dL (6.7-8.2)
[2017-07-27] MEDS ORDERED: predniSONE 20 MG TABLET PO STA (20:57)
[2017-07-27] MEDS ORDERED: LORazepam 0.5 MG TABLET PO STA (20:57)
[2017-07-27] MEDS ORDERED: LORazepam 0.5 MG TABLET ONE (21:05)
[2017-07-27] MEDS ORDERED: predniSONE 20 MG TABLET ONE (21:05)
--- NOTE | 2017-07-27 21:58 | ED Physician Documentation ---
History of Present Illness - Stated complaint Stated Complaint: SOA - Chief complaint Chief Complaint: Resp - History obtained from History obtained from: Patient, Friend - History of Present Illness Timing: Today Pain level max: 0 Pain level now: 0 Improved by: rest, inhaler Worsened by: exertion - Additonal information Additional information: Patient is a 66-year-old female who presents to the emergency department with dyspnea today. Has a history of COPD as well as congestive heart failure. Has not been taking her Lasix daily, but takes it as needed. Did take a dose of Lasix this morning, but states still feels short of breath. Has inhalers at home but no nebulizer. Is not on any steroids. Denies any fevers. Denies any recent illnesses or travel. Has been seen here twice within the past month for same, 2 CT angiograms of the chest without evidence of pulmonary embolus. Has not had any recent immobilization. No history of blood clots. Has not complained of any leg pain or calf swelling. Review of Systems Ten Systems: 10 systems reviewed and negative Constitutional: denies: Fever, Chills Ears: denies: Ear pain Nose: denies: Rhinorrhea / runny nose, Congestion Throat: denies: Sore throat Cardiac: denies: Chest pain / pressure, Calf pain GI: denies: Abdominal Pain, Nausea, Vomiting Skin: denies: Rash Musculoskeletal: denies: Neck pain, Back pain Neurologic: denies: Headache PD PAST MEDICAL HISTORY - Past Medical History Cardiovascular: Congestive heart failure Respiratory: Asthma, COPD Endocrine/Autoimmune: None GI: GERD, Other : Frequency HEENT: Other Psych: Depression, Anxiety Musculoskeletal: None Derm: None - Past Surgical History Past Surgical History: Yes General: Appendectomy, Other HEENT: Tonsil/Adenoidectomy - Present Medications Home Medications: Ambulatory Orders Medication Instructions Recorded Confirmed Amitriptyline HCl 100 mg PO DAILY 02/08/16 07/27/17 Sucralfate 1 g PO ACHS 02/08/16 07/27/17 Multivit with Calcium,Iron,Min 1 each PO DAILY #30 tablet 06/23/17 07/27/17 [Multiple Vitamins For Women] Omeprazole 40 mg PO BID 07/07/17 07/27/17 Albuterol Sulfate [Proair Hfa 8.5 gm IH Q6H PRN 07/08/17 07/27/17 Inhaler] Calcium Citrate 600 mg PO DAILY 07/08/17 07/27/17 Cholecalciferol (Vitamin D3) 1,000 unit PO DAILY 07/08/17 07/27/17 [Vitamin D3] Diphenoxylate/Atropine [Lomotil] 1 each PO QID PRN 07/08/17 07/27/17 Fluticasone/Salmeterol [Advair 1 each IH BID 07/08/17 07/27/17 250-50 Diskus] Maria De Jesus Root 550 mg PO DAILY 07/08/17 07/27/17 Magnesium Oxide [Magnesium] 250 mg PO DAILY 07/08/17 07/27/17 Venlafaxine HCl [Venlafaxine HCl 225 mg PO DAILY PM 07/08/17 07/27/17 ER] Vitamin B Complex 1 each PO DAILY 07/08/17 07/27/17 Aspirin Chewable [St Yung 81 mg PO DAILY tablet 07/09/17 07/27/17 Aspirin] Carvedilol [Coreg] 6.25 mg PO BID #60 tablet 07/09/17 07/27/17 Furosemide 20 mg PO DAILY #60 tablet 07/09/17 07/27/17 Losartan [Cozaar] 50 mg PO DAILY #30 tablet 07/09/17 07/27/17 Prednisone 40 mg PO DAILY #10 tablet 07/27/17 Spironolactone [Aldactone] 25 mg PO DAILY 07/27/17 07/27/17 - Allergies Allergies/Adverse Reactions: Allergies Allergy/AdvReac Type Severity Reaction Status Date / Time erythromycin base Allergy Cramps Verified 07/27/17 18:51 Penicillins Allergy Respiratory Verified 07/27/17 18:51 Sulfa (Sulfonamide Allergy Respiratory Verified 07/27/17 18:51 Antibiotics) - Social History Does the pt smoke?: No Smoking Status: Never smoker Does the pt drink ETOH?: Yes Does the pt have substance abuse?: No - Immunizations Immunizations are current?: Yes - POLST Patient has POLST: No PD ED PE NORMAL - Vitals Vital signs reviewed: Yes - General General: Alert and oriented X 3, No acute distress, Well developed/nourished - HEENT HEENT: PERRL, Moist mucous membranes - Neck Neck: Supple, no meningeal sign - Cardiac Cardiac: RRR, No murmur, Strong equal pulses - Respiratory Respiratory: No respiratory distress, Other (mild wheeze B, mild decreased BS bilaterally) - Abdomen Abdomen: Soft, Non tender, Non distended - Derm Derm: Warm and dry - Extremities Extremities: Other (1+ B LE edema) - Neuro Neuro: Alert and oriented X 3 - Psych Psych: Normal mood, Normal affect Results - Vitals Vitals: Vital Signs - 24 hr 07/27/17 07/27/17 07/27/17 18:45 19:30 19:52 Temperature 37.2 C Heart Rate 103 H 99 99 Respiratory 18 22 18 Rate Blood Pressure 138/87 H 139/58 H O2 Saturation 97 98 07/27/17 07/27/17 21:09 22:02 Temperature Heart Rate 100 95 Respiratory 19 21 Rate Blood Pressure 140/78 H 125/81 H O2 Saturation 95 95 Oxygen O2 Source Room air - Labs Labs: Laboratory Tests 07/27/17 07/27/17 07/27/17 20:30 20:30 20:30 WBC 6.7 RBC 3.98 L Hgb 12.1 Hct 36.5 L MCV 91.8 MCH 30.3 MCHC 33.1 RDW 15.6 H Plt Count 377 MPV 7.9 Neut # 3.8 Lymph # 1.8 [place] # 0.7 Eos # 0.2 Baso # 0.2 H Absolute Nucleated RBC 0.01 Nucleated RBC % 0.1 Sodium 141 Potassium 3.0 L Chloride 102 Carbon Dioxide 27 Anion Gap 12.0 BUN 10 Creatinine 0.7 Estimated GFR (MDRD) 84 L Glucose 125 H Calcium 9.2 Total Bilirubin 0.7 AST 23 ALT 14 Alkaline Phosphatase 89 Troponin I < 0.04 B-Natriuretic Peptide Total Protein 6.9 Albumin 3.8 Globulin 3.1 Albumin/Globulin Ratio 1.2 Lipase 26 07/27/17 20:30 WBC RBC Hgb Hct MCV MCH MCHC RDW Plt Count MPV Neut # Lymph # [place] # Eos # Baso # Absolute Nucleated RBC Nucleated RBC % Sodium Potassium Chloride Carbon Dioxide Anion Gap BUN Creatinine Estimated GFR (MDRD) Glucose Calcium Total Bilirubin AST ALT Alkaline Phosphatase Troponin I B-Natriuretic Peptide 1051 H Total Protein Albumin Globulin Albumin/Globulin Ratio Lipase - Rads (name of study) cxr Radiology: Prelim report reviewed, EMP read contemporaneously, See rad report ( Stable abnormal exam. Indeterminate as regards to the finding the superior segment of the right lower lobe as to whether this represents a chronic low- grade infection versus recurrent pneumonia. CT appearance and stability over the past 14 months is encouraging that this is less likely to represent a semisolid low-grade lung cancer. Follow-up chest CT in 6 months recommended to continue monitoring as clinically indicated. Mild cardiomegaly) PD MEDICAL DECISION MAKING - ED course Complexity details: reviewed old records, reviewed results, re-evaluated patient , considered differential, d/w patient ED course: Patient is a 66-year-old female who presents to the emergency department with what appears to be a mixed presentation of a mild COPD exacerbation coupled with a mild CHF exacerbation. No hypoxia. No respiratory distress. Took her Lasix prior to arrival. Given steroids and breathing treatments here. Feels better. Has had 2 CT scans of the chest within the past month, will not repeat this today, clinically does not appear to have a pulmonary embolus. Will have her follow-up closely with her doctor for further evaluation and care, recommend that she continue the Lasix as prescribed. Recommend that she use this daily rather than intermittently. She was also given a dose of Ativan which seemed to help her breathing significantly. Has Xanax at home. Patient would likely benefit from a pulmonary referral as well as cardiology referral. She can obtain this from her doctor. Patient counseled regarding signs and symptoms for which I believe and urgent re-evaluation would be necessary. Patient with good understanding of and agreement to plan and is comfortable going home at this time This document was made in part using voice recognition software. While efforts are made to proofread this document, sound alike and grammatical errors may occur. Departure - Departure Disposition: 01 Home, Self Care Clinical Impression: Anxiety CHF exacerbation Qualifiers: Congestive heart failure type: unspecified congestive heart failure type Qualified Code(s): I50.9 - Heart failure, unspecified COPD (chronic obstructive pulmonary disease) Qualifiers: COPD type: unspecified COPD Qualified Code(s): J44.9 - Chronic obstructive pulmonary disease, unspecified Condition: Good Instructions: ED CHF General, ED COPD Flare Follow-Up: Rosie Lowery PA-C [Primary Care Provider] - Within 1 week Prescriptions: Prednisone 40 mg PO DAILY #10 tablet Comments: Return if you worsen. It is important that you follow-up with a repeat CAT scan of your chest in 6 months to assess the stability of the scarring versus lesion in the right upper lobe of your lung. It is also recommended that you see a billet assembler to assess your lung function and if there are any other medications that may help you. Follow-up with the poultry husbandry worker as scheduled. They may want to look at changing the carvedilol and losartan to a calcium channel tracy which may not affect your lungs as much and may help your esophageal spasms as well. Discussed this with your doctor and the poultry husbandry worker. Discharge Date/Time: 07/27/17 22:06
[2017-07-27 22:03] VITALS: BP 125/81
== END 2017-07-27 22:06 | disposition home or self-care (01) ==
LOC: ED 18:25
DX: I50.9 Heart failure, unspecified (principal); J44.9 Chronic obstructive pulmonary disease, unspecified; F41.9 Anxiety disorder, unspecified; T50.1X6A Underdosing of loop [high-ceiling] diuretics, initial encounter; Z91.128 Patient's intentional underdosing of medication regimen for other reason; J45.909 Unspecified asthma, uncomplicated; K21.9 Gastro-esophageal reflux disease without esophagitis; Z79.82 Long term (current) use of aspirin
CPT/HCPCS: 36415; 71020; 80053; 83690; 83880; 84484; 85025; 94640; 99283; 99284; A9270; J7512; J7620

== ENCOUNTER 2017-10-08 15:34 | Outpatient (CLI) | payer MEDICARE, OTHER ==
--- NOTE | 2017-10-08 17:47 | XRAY Preliminary Report ---
Exam: XR CHEST 2 VIEW X-RAY IMPRESSION: 1. Upper lung predominant COPD again noted. 2. No focal airspace consolidation. [facility] SITE ID: [id number]
--- NOTE | 2017-10-08 17:47 | XRAY Report ---
EXAM: CHEST RADIOGRAPHY EXAM DATE: 10/08/2017 04:42 PM. CLINICAL HISTORY: Chronic copd. COMPARISON: 07/27/2017. TECHNIQUE: 2 views. FINDINGS: Lungs/Pleura: Large lung volumes with lucent upper lungs compatible with COPD. No new focal airspace consolidation. Persistent mild left basal pleural thickening. No pneumothorax. Mediastinum: Unchanged heart size and mediastinum. Other: None. IMPRESSION: 1. Upper lung predominant COPD again noted. 2. No focal airspace consolidation. [facility] Referring Provider Line: [phone] SITE ID: [id number]
== END 2017-10-08 15:35 | disposition home or self-care (01) ==
LOC: DI.N 15:34
PROVIDERS: ATTEND Specialist
DX: J44.9 Chronic obstructive pulmonary disease, unspecified (principal)
CPT/HCPCS: 71046

== ENCOUNTER 2017-11-30 16:45 | Outpatient (CLI) | payer MEDICARE, OTHER ==
[2017-11-30 17:02] LABS: BASOPHILS # (AUTO) 0.1 10^3/uL (0.0-0.1); BASOPHILS % (AUTO) 1.2 %; EOSINOPHILS # (AUTO) 0.1 10^3/uL (0.0-0.7); EOSINOPHILS % (AUTO) 2.4 %; HGB - HEMOGLOBIN 12.6 g/dL (12.0-16.0); LYMPHOCYTES % (AUTO) 33.9 %; MEAN CORPUSCULAR HEMOGLOBIN 31.8 pg (27.0-31.0); MEAN CORPUSCULAR HGB CONC 34.2 g/dL (32.0-36.0); MEAN PLATELET VOLUME 7.4 fL (7.9-10.8); MONOCYTES # (AUTO) 0.5 10^3/uL (0.0-1.0); MONOCYTES % (AUTO) 8.3 %; NEUTROPHILS # (AUTO) 3.2 10^3/uL (1.5-6.6); NEUTROPHILS % (AUTO) 54.2 %; PLT - PLATELET COUNT 368 10^3/uL (130-450); RED BLOOD COUNT 3.96 10^6/uL (4.20-5.40); RED CELL DISTRIBUTION WIDTH 14.5 % (12.0-15.0); WHITE BLOOD COUNT 5.8 x10^3/uL (4.8-10.8)
[2017-11-30 17:13] LABS: ALBUMIN 4.3 g/dL (3.2-5.5); ALBUMIN/GLOBULIN RATIO 1.5 (1.0-2.2); BILIRUBIN,TOTAL 0.5 mg/dL (0.2-1.0); CALCIUM 9.4 mg/dL (8.5-10.3); CREATININE 0.7 mg/dL (0.4-1.0); TOTAL PROTEIN 7.2 g/dL (6.7-8.2)
== END 2017-11-30 16:46 | disposition home or self-care (01) ==
LOC: LAB 16:45
PROVIDERS: ATTEND Specialist
DX: I10 Essential (primary) hypertension (principal); I50.1 Left ventricular failure, unspecified; J44.9 Chronic obstructive pulmonary disease, unspecified
CPT/HCPCS: 80053; 83880; 85025

== ENCOUNTER 2017-12-30 14:29 | Outpatient (CLI) | payer MEDICARE, OTHER ==
--- NOTE | 2017-12-31 13:34 | Mammography Report ---
DIGITAL SCREENING MAMMOGRAM: 12/30/2017 CLINICAL INDICATION: A 67-year-old with a history of benign biopsy for screening. COMPARISON: 03/2016, 03/2015, 07/2013, 05/2012, 04/2011, 10/2009. TECHNIQUE: Routine CC and MLO projections were obtained of the breasts. FINDINGS: The breasts again demonstrate scattered fibroglandular densities bilaterally. Coarse and punctate, typically benign calcifications are present. In the right upper inner central breast, there is possible architectural distortion. Further evaluation with spot compression views and possible ultrasound is recommended. No mammographically suspicious findings are appreciated in the left breast. IMPRESSION: INCOMPLETE EXAMINATION. RECOMMENDATION: Additional evaluation of the right breast as above. BIRADS CATEGORY 0 - INCOMPLETE. STANDARD QUALIFYING STATEMENTS: 1. This examination was reviewed with the aid of Computer-Aided Detection (CAD). 2. A negative or benign imaging report should not delay biopsy if clinically suspicious findings are present. Consider surgical consultation if warranted. More than 5% of cancers are not identified by imaging. 3. Dense breasts may obscure an underlying neoplasm. TD: 12/31/2017 13:33
== END 2017-12-30 14:30 | disposition home or self-care (01) ==
LOC: DI.N 14:29
PROVIDERS: ATTEND Physician Assistant
DX: Z12.31 Encounter for screening mammogram for malignant neoplasm of breast (principal); R92.8 Other abnormal and inconclusive findings on diagnostic imaging of breast
CPT/HCPCS: 77067

== ENCOUNTER 2018-01-20 10:45 | Outpatient (CLI) | payer MEDICARE, OTHER ==
--- NOTE | 2018-01-20 11:31 | Mammography Report ---
DIAGNOSTIC RIGHT MAMMOGRAM: 01/20/2018 CLINICAL INDICATION: Possible architectural distortion right inner central breast. TECHNIQUE: Right true lateral and spot compression views. COMPARISON: 12/30/2017, 03/21/2016, 03/18/2015, 07/13/2013, 06/05/2012, 04/20/2011, 11/05/2009. FINDINGS: The right breast again demonstrates scattered fibroglandular densities. The possible architectural distortion seen on the screening views does not persist with additional compression. No underlying mass lesion is seen. Coarse and punctate, typically benign calcifications are present. IMPRESSION: BENIGN FINDINGS. RECOMMENDATION: Routine annual screening unless otherwise clinically indicated. BIRADS CATEGORY 2 - BENIGN FINDINGS. STANDARD QUALIFYING STATEMENTS: 1. This examination was reviewed with the aid of Computer-Aided Detection (CAD). 2. A negative or benign imaging report should not delay biopsy if clinically suspicious findings are present. Consider surgical consultation if warranted. More than 5% of cancers are not identified by imaging. 3. Dense breasts may obscure an underlying neoplasm. TD: 01/20/2018 11:30
== END 2018-01-20 10:46 | disposition home or self-care (01) ==
LOC: DI 10:45
PROVIDERS: ATTEND Physician Assistant
DX: R92.8 Other abnormal and inconclusive findings on diagnostic imaging of breast (principal)

== ENCOUNTER 2018-03-09 16:27 | Emergency (ER) | payer MEDICARE, OTHER ==
--- NOTE | 2018-03-09 17:21 | ED Physician Documentation ---
PD HPI DYSPNEA - Stated complaint Stated Complaint: BP ISSUES - Chief complaint Chief Complaint: General - History obtained from History obtained from: Patient - History of Present Illness Timing - onset: How many days ago (few) Timing - onset during: Light activity, Exertion Timing - duration: Days Timing - details: Gradual onset, Still present, Waxing and waning Inciting event(s): URI (has had some cough and congestion). No: Out of meds Improved by: Rest Worsened by: Exertion, Coughing Associated symptoms: Cough, Wheezing, Chest pain / discomfort. No: Fever, Palpitations, Bilateral edema Similar symptoms before: Diagnosis (CHF and COPD) Review of Systems Constitutional: reports: Myalgias, Fatigue. denies: Fever Nose: reports: Congestion. denies: Rhinorrhea / runny nose Throat: denies: Sore throat Cardiac: denies: Palpitations, Pedal edema, Calf pain Respiratory: reports: Dyspnea, Cough, Wheezing. denies: Hemoptysis GI: denies: Abdominal Pain, Nausea, Vomiting, Diarrhea Skin: denies: Rash PD PAST MEDICAL HISTORY - Past Medical History Cardiovascular: Congestive heart failure Respiratory: Asthma, COPD Endocrine/Autoimmune: None GI: GERD, Other : Frequency HEENT: Other Psych: Depression, Anxiety Musculoskeletal: None Derm: None - Past Surgical History Past Surgical History: Yes General: Appendectomy, Other HEENT: Tonsil/Adenoidectomy - Present Medications Home Medications: Ambulatory Orders Medication Instructions Recorded Confirmed Amitriptyline HCl 100 mg PO DAILY 02/08/16 07/27/17 Sucralfate 1 g PO ACHS 02/08/16 07/27/17 Multivit with Calcium,Iron,Min 1 each PO DAILY #30 tablet 06/23/17 07/27/17 [Multiple Vitamins For Women] Omeprazole 40 mg PO BID 07/07/17 07/27/17 Albuterol Sulfate [Proair Hfa 8.5 gm IH Q6H PRN 07/08/17 07/27/17 Inhaler] Calcium Citrate 600 mg PO DAILY 07/08/17 07/27/17 Cholecalciferol (Vitamin D3) 1,000 unit PO DAILY 07/08/17 07/27/17 [Vitamin D3] Diphenoxylate/Atropine [Lomotil] 1 each PO QID PRN 07/08/17 07/27/17 Fluticasone/Salmeterol [Advair 1 each IH BID 07/08/17 07/27/17 250-50 Diskus] Maria De Jesus Root 550 mg PO DAILY 07/08/17 07/27/17 Magnesium Oxide [Magnesium] 250 mg PO DAILY 07/08/17 07/27/17 Venlafaxine HCl [Venlafaxine HCl 225 mg PO DAILY PM 07/08/17 07/27/17 ER] Vitamin B Complex 1 each PO DAILY 07/08/17 07/27/17 Aspirin Chewable [St Yung 81 mg PO DAILY tablet 07/09/17 07/27/17 Aspirin] Carvedilol [Coreg] 6.25 mg PO BID #60 tablet 07/09/17 07/27/17 Furosemide 20 mg PO DAILY #60 tablet 07/09/17 07/27/17 Losartan [Cozaar] 50 mg PO DAILY #30 tablet 07/09/17 07/27/17 Spironolactone [Aldactone] 25 mg PO DAILY 07/27/17 07/27/17 predniSONE [Prednisone] 40 mg PO DAILY #10 tablet 07/27/17 Albuterol Sulf [Ventolin Hfa 1 - 2 puffs INH Q4HR PRN #1 inhaler 03/09/18 Inhaler] Benzonatate [Tessalon] 100 mg PO TID PRN #25 capsule 03/09/18 Dexamethasone [Decadron] 4 mg PO DAILY #5 tablet 03/09/18 Doxycycline Monohydrate 100 mg PO BID #14 tablet 03/09/18 - Allergies Allergies/Adverse Reactions: Allergies Allergy/AdvReac Type Severity Reaction Status Date / Time erythromycin base Allergy Cramps Verified 03/09/18 17:06 Penicillins Allergy Respiratory Verified 03/09/18 17:06 Sulfa (Sulfonamide Allergy Respiratory Verified 03/09/18 17:06 Antibiotics) - Social History Does the pt smoke?: No Smoking Status: Never smoker Does the pt drink ETOH?: Yes Does the pt have substance abuse?: No - Family History Family history: reports: Non contributory - Immunizations Immunizations are current?: Yes - POLST Patient has POLST: No PD ED PE NORMAL - Vitals Vital signs reviewed: Yes - General General: Alert and oriented X 3, No acute distress, Well developed/nourished - HEENT HEENT: Pharynx benign - Neck Neck: Supple, no meningeal sign, No adenopathy - Cardiac Cardiac: RRR, No murmur - Respiratory Respiratory: No: Clear bilaterally (diffuse wheezing, without congestion) - Back Back: No CVA TTP - Derm Derm: Normal color, Warm and dry - Extremities Extremities: No deformity, No tenderness to palpate, Normal ROM s pain, No edema , No calf tenderness / cord - Neuro Neuro: Alert and oriented X 3, No motor deficit, Normal speech Results - Vitals Vitals: Oxygen O2 Source Room air - EKG (time done) 17:18 Rate: Rate (enter#) (104) Rhythm: Sinus tachycardia, NSR [place]: Normal Intervals: Normal AL QRS: Normal Ischemia: Normal ST segments. No: ST elevation c/w ischemia, ST depression - Labs Labs: Microbiology 03/09/18 18:10 Urine Culture - Final Urine,Clean Catch Escherichia Coli Laboratory Tests 03/09/18 03/09/18 03/09/18 17:55 18:10 18:19 WBC 6.9 RBC 3.99 L Hgb 12.6 Hct 38.5 MCV 96.5 MCH 31.6 H MCHC 32.8 RDW 14.5 Plt Count 448 MPV 7.2 L Neut # (Auto) 4.7 Lymph # (Auto) 1.2 L [place] # (Auto) 0.7 Eos # (Auto) 0.2 Baso # (Auto) 0.1 Absolute Nucleated RBC 0.01 Nucleated RBC % 0.1 Sodium 135 Potassium 3.5 Chloride 97 L Carbon Dioxide 24 Anion Gap 14.0 H BUN 16 Creatinine 0.9 Estimated GFR (MDRD) 62 L Glucose 115 H Calcium 9.3 Magnesium 2.0 Total Bilirubin 0.7 AST 41 ALT 32 Alkaline Phosphatase 120 Troponin I B-Natriuretic Peptide Total Protein 7.8 Albumin 4.4 Globulin 3.4 Albumin/Globulin Ratio 1.3 Lipase 28 Urine Color LT. YELLOW Urine Clarity HAZY Urine pH 5.0 Ur Specific [place] <=1.005 Urine Protein NEGATIVE Urine Glucose (UA) NEGATIVE Urine Ketones NEGATIVE Urine Occult Blood TRACE-INTA Urine Nitrite NEGATIVE Urine Bilirubin NEGATIVE Urine Urobilinogen 0.2 (NORMAL) Ur Leukocyte Esterase SMALL H Urine RBC 0-5 Urine WBC 6-10 H Urine WBC Clumps PRESENT Ur Squamous Epith Cells RARE Squamous Urine Bacteria Few Ur Microscopic Review INDICATED Urine Culture Comments INDICATED 03/09/18 03/09/18 18:19 18:19 WBC RBC Hgb Hct MCV MCH MCHC RDW Plt Count MPV Neut # (Auto) Lymph # (Auto) [place] # (Auto) Eos # (Auto) Baso # (Auto) Absolute Nucleated RBC Nucleated RBC % Sodium Potassium Chloride Carbon Dioxide Anion Gap BUN Creatinine Estimated GFR (MDRD) Glucose Calcium Magnesium Total Bilirubin AST ALT Alkaline Phosphatase Troponin I < 0.04 B-Natriuretic Peptide 35 Total Protein Albumin Globulin Albumin/Globulin Ratio Lipase Urine Color Urine Clarity Urine pH Ur Specific [place] Urine Protein Urine Glucose (UA) Urine Ketones Urine Occult Blood Urine Nitrite Urine Bilirubin Urine Urobilinogen Ur Leukocyte Esterase Urine RBC Urine WBC Urine WBC Clumps Ur Squamous Epith Cells Urine Bacteria Ur Microscopic Review Urine Culture Comments PD MEDICAL DECISION MAKING - ED course Complexity details: reviewed results (does not seem CHF nor ACS. Findings c/w COPD exac, with wheezing. ), considered differential, d/w patient Departure - Departure Disposition: 01 Home, Self Care Clinical Impression: Asthma exacerbation in COPD Dyspnea Qualifiers: Dyspnea type: dyspnea on exertion Qualified Code(s): R06.09 - Other forms of dyspnea Clinical Impression: (Ruled Out): CHF exacerbation Condition: Stable Record reviewed to determine appropriate education?: Yes Instructions: ED COPD Flare Follow-Up: Rosie Lowery PA-C [Primary Care Provider] - Prescriptions: Albuterol Sulf [Ventolin Hfa Inhaler] 1 - 2 puffs INH Q4HR PRN #1 inhaler PRN Reason: Shortness Of Air/Wheezing Benzonatate [Tessalon] 100 mg PO TID PRN #25 capsule PRN Reason: Cough Dexamethasone [Decadron] 4 mg PO DAILY #5 tablet Doxycycline Monohydrate 100 mg PO BID #14 tablet Comments: Continue usual medications. Use your albuterol inhaler 2-3 puffs 4 times a day for the next 7-10 days and then extra times as needed. There is no signs of congestive failure on your lab tests or x-ray or clinically. It appears to be an exacerbation of the COPD. For this to take Decadron steroid daily for 5 more days. Use Tessalon if needed for cough. This may be just a viral illness but in the setting of COPD there may be a better outcome and improvement with antibiotics as well and so take doxycycline twice daily for a week. Recheck with your primary care later this week, call tomorrow for an appointment. Return sooner if worsening. Discharge Date/Time: 03/09/18 20:02
[2018-03-09] MEDS ORDERED: DEXAMETHASONE 10 MG/ML VIAL IVP STA (17:33)
[2018-03-09] MEDS ORDERED: IPRATROPIUM/ALBUTEROL 3 ML NEB INH STA (17:33)
[2018-03-09] MEDS ORDERED: BENZONATATE 100 MG CAPSULE PO STA (17:33)
[2018-03-09 18:01] LABS: BASOPHILS # (AUTO) 0.1 10^3/uL (0.0-0.1); BASOPHILS % (AUTO) 1.2 %; EOSINOPHILS # (AUTO) 0.2 10^3/uL (0.0-0.7); EOSINOPHILS % (AUTO) 2.5 %; HGB - HEMOGLOBIN 12.6 g/dL (12.0-16.0); LYMPHOCYTES # (AUTO) 1.2 10^3/uL (1.5-3.5); LYMPHOCYTES % (AUTO) 17.1 %; MEAN CORPUSCULAR HEMOGLOBIN 31.6 pg (27.0-31.0); MEAN CORPUSCULAR HGB CONC 32.8 g/dL (32.0-36.0); MEAN CORPUSCULAR VOLUME 96.5 fL (81.0-99.0); MEAN PLATELET VOLUME 7.2 fL (7.9-10.8); MONOCYTES # (AUTO) 0.7 10^3/uL (0.0-1.0); MONOCYTES % (AUTO) 10.7 %; NEUTROPHILS # (AUTO) 4.7 10^3/uL (1.5-6.6); NEUTROPHILS % (AUTO) 68.5 %; PLT - PLATELET COUNT 448 10^3/uL (130-450); RED BLOOD COUNT 3.99 10^6/uL (4.20-5.40); RED CELL DISTRIBUTION WIDTH 14.5 % (12.0-15.0); WHITE BLOOD COUNT 6.9 x10^3/uL (4.8-10.8)
--- NOTE | 2018-03-09 18:02 | XRAY Preliminary Report ---
Exam: XR CHEST 2 VIEW X-RAY IMPRESSION: 1. Postoperative changes at the left lung base. Probable COPD. Biapical scarring is unchanged. 2. Probable left basilar pleural thickening or scarring given the stability. No new effusion or pneum othorax. No new consolidation. [facility] SITE ID: [id number]
--- NOTE | 2018-03-09 18:04 | XRAY Report ---
EXAM: CHEST RADIOGRAPHY EXAM DATE: 03/09/2018 05:44 PM. CLINICAL HISTORY: Shortness of air. COMPARISON: 10/08/2007. TECHNIQUE: 2 views. FINDINGS: Lungs/Pleura: Biapical pleural thickening. Blunting of the left costophrenic angle is unchanged. Post operative changes at the left base. Coarse interstitial prominence and bronchial wall thickening note d. No new consolidation or pneumothorax. Mediastinum: Stable cardiac silhouette. Air-fluid level in the lower thorax in the midline is consist ent with the patient's gastric pull-through. Other: Convex to the right curvature of the mid to upper lumbar spine unchanged. Compression fractures noted in the upper lumbar spine. IMPRESSION: 1. Postoperative changes at the left lung base. Probable COPD. Biapical scarring is unchanged. 2. Probable left basilar pleural thickening or scarring given the stability. No new effusion or pneum othorax. No new consolidation. [facility] Referring Provider Line: [phone] SITE ID: [id number]
[2018-03-09 18:25] LABS: BILIRUBIN,URINE NEGATIVE (NEGATIVE); GLUCOSE, URINE (UA) NEGATIVE (NEGATIVE); KETONES,URINE (UA) NEGATIVE (NEGATIVE); LEUKOCYTE ESTERASE, URINE SMALL (NEGATIVE); NITRITE,URINE NEGATIVE (NEGATIVE); OCCULT BLOOD,URINE TRACE-INTA (NEGATIVE); PROTEIN,URINE NEGATIVE (NEGATIVE); UROBILINOGEN,URINE 0.2 (NORMAL) E.U./dL (NORMAL)
[2018-03-09 18:26] LABS: CLARITY,URINE HAZY (CLEAR)
[2018-03-09 18:46] LABS: ALBUMIN 4.4 g/dL (3.2-5.5); ALBUMIN/GLOBULIN RATIO 1.3 (1.0-2.2); BILIRUBIN,TOTAL 0.7 mg/dL (0.2-1.0); CALCIUM 9.3 mg/dL (8.5-10.3); CREATININE 0.9 mg/dL (0.4-1.0); TOTAL PROTEIN 7.8 g/dL (6.7-8.2)
[2018-03-09 18:50] LABS: BACTERIA,URINE Few /HPF (None Seen); RBC,URINE 0-5 /HPF (0-5); SQUAMOUS EPITHELIAL CELL,UR RARE Squamous (<= Few); WBC CLUMPS,URINE PRESENT
[2018-03-09] MEDS ORDERED: DOXYCYCLINE 100 MG TABLET PO STA (19:39)
[2018-03-09 19:58] VITALS: BP 121/70
== END 2018-03-09 20:02 | disposition home or self-care (01) ==
LOC: ED 16:27
DX: J44.1 Chronic obstructive pulmonary disease with (acute) exacerbation (principal); J45.998 Other asthma; I50.9 Heart failure, unspecified; K21.9 Gastro-esophageal reflux disease without esophagitis; Z79.82 Long term (current) use of aspirin
CPT/HCPCS: 36415; 71046; 80053; 81001; 83690; 83735; 83880; 84484; 85025; 87086; 87181; 93005; 94640; 96374; 99283; 99284; A9270; 81003

== ENCOUNTER 2018-05-27 13:12 | Outpatient (CLI) | payer MEDICARE, OTHER ==
--- NOTE | 2018-05-27 14:17 | XRAY Report ---
Procedure Date: 05/27/2018 Accession Number: [id number] / [id number] Procedure: XR - Chest 2 View X-Ray CPT Code: 06744 FULL RESULT: EXAM: CHEST RADIOGRAPHY EXAM DATE: 05/27/2018 01:58 PM. CLINICAL HISTORY: Chronic obstructive pulmonary disease, unspecified. COMPARISON: Chest radiograph 03/09/2018, 10/08/2017 and 07/27/2017. CT pulmonary angiogram 07/07/2017. TECHNIQUE: 2 views. FINDINGS: Lungs/Pleura: Pulmonary hyperinflation with chronic left costophrenic angle blunting. No new or worsening focal airspace opacity. No definite pleural effusion. No pneumothorax with biapical pleural-parenchymal scarring. Similar right perihilar parenchymal scarring. Bronchial wall thickening as before suggesting chronic bronchitis. 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 Convex right curvature of the lumbar spine. Similar chronic severe compression deformity of L1. IMPRESSION: No acute cardiopulmonary abnormality with similar chronic findings including COPD and chronic lung scarring. [facility]
== END 2018-05-27 13:13 | disposition home or self-care (01) ==
LOC: DI 13:12
PROVIDERS: ATTEND Specialist
DX: J44.9 Chronic obstructive pulmonary disease, unspecified (principal)
CPT/HCPCS: 71046

== ENCOUNTER 2019-04-16 15:09 | Outpatient (CLI) | payer MEDICARE, OTHER ==
--- NOTE | 2019-04-20 08:25 | DEXA Report ---
Reason: ENCTR FOR SCREENING FOR OSTEOPOROSIS, MENOPAUSE Procedure Date: 04/16/2019 Accession Number: [id number] / [id number] Procedure: DEX - Dexa Spine and/or Hip CPT Code: FULL RESULT: EXAM: Dexa Spine and/or Hip DATE: 04/16/2019 4:26 PM CLINICAL HISTORY: ENCTR FOR SCREENING FOR OSTEOPOROSIS, MENOPAUSE TECHNIQUE: Dual energy x-ray absorptiometry (DXA) was performed on a [employer] System. Regions measured are the AP Spine, femoral neck, and if needed forearm. COMPARISON: 03/21/2016. In accordance with the International Society for Clinical Densitometry (ISCD) guidelines, data from previous exams may be reanalyzed using current recommendations and techniques. This is done to allow a more accurate basis for comparison with the current study. FINDINGS: The data for the lumbar spine is as follows: BMD (g/cm/cm) T-SCORE Z-SCORE REGION L1 L2 1.195 0.0 2.0 L3 1.362 1.3 3.3 L4 1.170 -0.3 1.7 TOTAL 1.243 0.4 2.3 NOTE: All evaluable vertebrae are used for classification The data for the hip is as follows: BMD (g/cm/cm) T-SCORE Z-SCORE REGION Neck 0.794 -1.8 0.1 TOTAL 0.755 -2.0 -0.4 NOTE: The femoral neck or total proximal femur, whichever is lowest, is used for classification. DXA RESULTS SUMMARY: Spine SCAN DATE AGE BMD CHANGE VS CHANGE VS PREVIOUS PREVIOUS % 4/16/2019 [age] 1.243 0.034* 2.8* 03/21/2016 [age] 1.209 * Denotes significant change at the 95% confidence level. Denotes dissimilar scan types or analysis methods. DXA RESULTS SUMMARY: Hip SCAN DATE AGE BMD CHANGE VS CHANGE VS PREVIOUS PREVIOUS % 4/16/2019 [age] 0.755 -0.020 -2.6 03[age]21/2016 [age] 0.775 * Denotes significant change at the 95% confidence level. Denotes dissimilar scan types or analysis methods. IMPRESSION: THE WHO CLASSIFICATION BASED ON THE INTERNATIONAL REFERENCE STANDARD IS OSTEOPENIA. THE FRACTURE RISK IS INCREASED. RECOMMENDATION: Patients with diagnosis of osteoporosis or osteopenia should have regular bone mineral density assessment. For those eligible for Medicare, routine testing is allowed once every 2 years. Testing frequency can be increased for patients who have rapidly progressing disease or for those who are receiving medical therapy to restore bone mass. COMMENT: World Health Organization (WHO) definitions for osteoporosis and osteopenia: NORMAL BMD: T-score at -1.0 or higher, fracture risk is low OSTEOPENIA BMD: T-score between -1.0 and -2.5, fracture risk is increased. OSTEOPOROSIS BMD: T-score at -2.5 or lower, fracture risk is high. National Osteoporosis Foundation recommends: 1. Obtain adequate dietary calcium (at least 1200 mg per day) and vitamin D (400-800 international units per day). 2. Participate, as appropriate, in regular weightbearing and muscle-strengthening exercise. 3. Avoid tobacco use and reduce alcohol and caffeine intake. 4. For more detailed information see the website at www.NOF.org.
== END 2019-04-16 15:10 | disposition home or self-care (01) ==
LOC: DI 15:09
PROVIDERS: ATTEND Family Medicine
DX: Z13.820 Encounter for screening for osteoporosis (principal); M85.89 Other specified disorders of bone density and structure, multiple sites; Z78.0 Asymptomatic menopausal state
CPT/HCPCS: 77080

== ENCOUNTER 2019-04-16 15:10 | Outpatient (CLI) | payer MEDICARE, OTHER ==
--- NOTE | 2019-04-20 13:12 | Mammography Report ---
Reason: SCREENING MAMMO Procedure Date: 04/16/2019 Accession Number: [id number] / [id number] Procedure: ULYSSES - Screening Mammo w/Chen[place] CPT Code: FULL RESULT: EXAM: Screening Mammo w/[place] DATE: 04/16/2019 4:37 PM CLINICAL HISTORY: Screening encounter. History of early menses. TECHNIQUE: (B) - Bilateral CC, laterally exaggerated CC, MLO views were obtained. COMPARISON: 01/20/2018 through 07/13/2013. PARENCHYMAL PATTERN: (D) - The breast(s) demonstrate(s) heterogeneously dense fibroglandular parenchyma. FINDINGS: Typically benign vascular calcifications are noted. There are no suspicious masses, calcifications, or areas of distortion. IMPRESSION: Benign findings. BI-RADS category 2. RECOMMENDATION: (ANNUAL) - Recommend routine annual screening mammography. BI-RADS CATEGORY: (2) - Benign Findings. STANDARD QUALIFYING STATEMENTS: 1. This examination was not reviewed with the aid of Computer-Aided Detection (CAD). 2. A negative or benign imaging report should not preclude biopsy if clinically suspicious findings are present. 3. Dense breasts may obscure an underlying neoplasm. 4. This examination was reviewed the aid of 3D breast imaging (tomosynthesis).
== END 2019-04-16 15:11 | disposition home or self-care (01) ==
LOC: DI 15:10
PROVIDERS: ATTEND Family Medicine
DX: Z12.31 Encounter for screening mammogram for malignant neoplasm of breast (principal)
CPT/HCPCS: 77063; 77067

== ENCOUNTER 2019-04-21 11:06 | Outpatient (CLI) | payer MEDICARE, OTHER ==
--- NOTE | 2019-04-21 14:51 | XRAY Report ---
Reason: COUGH,SOB Procedure Date: 04/21/2019 Accession Number: [id number] / [id number] Procedure: XR - Chest 2 View X-Ray CPT Code: 56123 FULL RESULT: EXAM: CHEST RADIOGRAPHY EXAM DATE: 04/21/2019 11:43 AM. CLINICAL HISTORY: Cough, shortness of breath. COMPARISON: CHEST 2 VIEW 05/27/2018 1:51 PM CHEST ANGIO 07/07/2017 9:19 AM. TECHNIQUE: 2 views. FINDINGS: Lungs/Pleura: No focal airspace consolidation. High lung volumes with flattening of diaphragms, in keeping with obstructive pulmonary disease. Blunting of the left costophrenic angle is again seen, small pleural effusion. No sizable pneumothorax. Calcific thickening of the lung apices is noted, soft tissue thickening in this region was seen on the 2017 CT where no pleural calcifications were identified in the area but pleural plaquing is clearly demonstrated with calcifications in other regions. Mediastinum: Postsurgical changes are seen along the right paramediastinal border and underneath the left hemidiaphragm. Cardiomediastinal silhouette is unchanged from prior, no cardiac enlargement. Other: None. IMPRESSION: High lung volumes suggestive of obstructive lung disease. Persistent small left pleural effusion. Calcific thickening at the lung apices, correlate to history of asbestos exposure. RADIA
== END 2019-04-21 11:07 | disposition home or self-care (01) ==
LOC: DI 11:06
PROVIDERS: ATTEND Physician Assistant
DX: J44.1 Chronic obstructive pulmonary disease with (acute) exacerbation (principal); J90 Pleural effusion, not elsewhere classified
CPT/HCPCS: 71046

== ENCOUNTER 2020-07-18 11:00 | Outpatient (CLI) | payer MEDICARE, OTHER ==
--- NOTE | 2020-07-21 12:40 | Mammography Report ---
BILATERAL DIGITAL SCREENING MAMMOGRAM 3D/2D: 07/18/2020 CLINICAL: Routine screening. Comparison is made to exams dated: 04/24/2019 mammogram, 01/20/2018 mammogram, 12/30/2017 mammogram, mammogram, 03/18/2015 mammogram, and 07/13/2013 mammogram - [facility]. The tissue of both breasts is heterogeneously dense. This may lower the sensitivity of mammography. No significant masses, calcifications, or other findings are seen in either breast. There has been no significant interval change. IMPRESSION: NEGATIVE There is no mammographic evidence of malignancy. A 1 year screening mammogram is recommended. This exam was interpreted at Station ID: [id number]. NOTE: For mammograms, a report in lay terms will be sent to the patient. Approximately 15% of breast malignancies will not be visualized mammographically. In the management of a palpable breast mass, a negative mammogram must not discourage biopsy of a clinically suspicious lesion. Electronically Signed By: Andre Blankenship M.D. ddp/penrad:07/20/2020 13:13:19 ACR BI-RADS Category 1: Negative 3341F PARENCHYMAL PATTERN: (D) - The breast(s) demonstrate(s) heterogeneously dense fibroglandular jaleel vargas. BI-RADS CATEGORY: (1) - 1 RECOMMENDATION: (ANNUAL) - Recommend routine annual screening mammography. [id number] 1 year screening LATERALITY: (B)
== END 2020-07-18 11:01 | disposition home or self-care (01) ==
LOC: DI.N 11:00
PROVIDERS: ATTEND Physician Assistant
DX: Z12.31 Encounter for screening mammogram for malignant neoplasm of breast (principal)
CPT/HCPCS: 77063; 77067

== ENCOUNTER 2021-12-18 10:47 | Outpatient (CLI) | payer MEDICARE ==
--- NOTE | 2021-12-18 11:37 | XRAY Report ---
PROCEDURE: Shoulder 3 View RT INDICATIONS: HIP PAIN, KNEE PAIN, SHOULDER PAIN TECHNIQUE: 3 views of the shoulder were acquired. COMPARISON: None. FINDINGS: Bones: No fractures or dislocations. Moderate right acromioclavicular joint and glenohumeral joint o steoarthritic changes are seen. No suspicious bony lesions. Visualized ribs appear intact. Soft tissues: No suspicious soft tissue calcifications. IMPRESSION: Moderate right shoulder joint osteoarthritis. No fracture or dislocation. No gross soft tissue abnormality. Reviewed by: Edwin Pathak MD on 12/18/2021 11:36 AM PDT Approved by: Edwin Pathak MD on 12/18/2021 11:36 AM PDT Station ID: [id number]
--- NOTE | 2021-12-18 11:42 | XRAY Report ---
PROCEDURE: Hips 2V BILAT INDICATIONS: HIP PAIN, KNEE PAIN, SHOULDER PAIN TECHNIQUE: One view of the pelvis. One view of each hip. COMPARISON: None FINDINGS: Bones: No fractures or dislocations. No suspicious bony lesions. The visualized pelvic ring appear s intact. Soft tissues: No suspicious soft tissue calcifications or masses. IMPRESSION: No acute fracture. No osseous lesion. If symptoms and/or clinical suspicion for pathology continue, f urther assessment with repeat plain films, or advanced imaging (e.g., CT, MRI, or bone scan) is recom mended for further assessment. Reviewed by: Michael Plummer MD on 12/18/2021 11:41 AM PDT Approved by: Michael Plummer MD on 12/18/2021 11:41 AM PDT Station ID: [id number]
--- NOTE | 2021-12-18 14:28 | XRAY Report ---
PROCEDURE: Knee 3 View RT INDICATIONS: HIP PAIN, KNEE PAIN, SHOULDER PAIN TECHNIQUE: 4 views of the right knee(s) were acquired. COMPARISON: None. FINDINGS: Bones: There is lateral joint space narrowing. No fractures or dislocations. No suspicious bony les ions. No erosions or other radiographic evidence of inflammatory arthropathy. Soft tissues: No joint effusion. No suspicious soft tissue calcifications. IMPRESSION: No acute abnormality of the right knee. Reviewed by: Kendall Avila on 12/18/2021 2:27 PM PDT Approved by: Kendall Avila on 12/18/2021 2:27 PM PDT Station ID: [id number]
== END 2021-12-18 10:48 | disposition home or self-care (01) ==
LOC: DI 10:47
PROVIDERS: ATTEND Nurse Practitioner Family
DX: M25.551 Pain in right hip (principal); M25.561 Pain in right knee; M19.011 Primary osteoarthritis, right shoulder

== ENCOUNTER 2022-03-21 09:18 | Outpatient (CLI) | payer MEDICARE ==
--- NOTE | 2022-03-22 07:57 | Mammography Report ---
BILATERAL DIGITAL SCREENING MAMMOGRAM 3D/2D: 03/21/2022 CLINICAL: Routine screening. Comparison is made to exams dated: 07/18/2020 mammogram, 04/24/2019 mammogram, 01/20/2018 mammogram, mammogram, 03/21/2016 mammogram, and 03/18/2015 mammogram - [facility]. The tissue of both breasts is heterogeneously dense. This may lower the sensitivity of mammography. No significant masses, calcifications, or other findings are seen in either breast. There has been no significant interval change. IMPRESSION: NEGATIVE There is no mammographic evidence of malignancy. A 1 year screening mammogram is recommended. This exam was interpreted at Station ID: [id number]. NOTE: For mammograms, a report in lay terms will be sent to the patient. Approximately 15% of breast malignancies will not be visualized mammographically. In the management of a palpable breast mass, a negative mammogram must not discourage biopsy of a clinically suspicious lesion. Electronically Signed By: Patel Baeza M.D., jr/maite:03/21/2022 11:56:33 ACR BI-RADS Category 1: Negative 3341F PARENCHYMAL PATTERN: (D) - The breast(s) demonstrate(s) heterogeneously dense fibroglandular parmike vargas. BI-RADS CATEGORY: (1) - 1 RECOMMENDATION: (ANNUAL) - Recommend routine annual screening mammography. [id number] 1 year screening LATERALITY: (B)
== END 2022-03-21 09:19 | disposition home or self-care (01) ==
LOC: DI.N 09:18
PROVIDERS: ATTEND Nurse Practitioner Family
DX: Z12.31 Encounter for screening mammogram for malignant neoplasm of breast (principal)

== ENCOUNTER 2022-05-08 20:29 | Outpatient (CLI) | payer MEDICARE | END 2022-05-08 20:30 | disposition home or self-care (01) | LOC: SC 20:29 | PROVIDERS: ATTEND Internal Medicine Pulmonary Disease | DX: G47.61 Periodic limb movement disorder (principal) | CPT/HCPCS: 95810 ==

== ENCOUNTER 2022-07-02 09:45 | Outpatient (CLI) | payer MEDICARE ==
--- NOTE | 2022-07-02 14:37 | DEXA Report ---
PROCEDURE: Dexa Spine and/or Hip INDICATIONS: OSTEOPENIA TECHNIQUE: Dual energy x-ray absorptiometry (DXA) was performed on a [employer] System. Regions measur ed are the AP Spine, femoral neck, and if needed forearm. COMPARISON: None. FINDINGS: Lumbar Spine: Bone Mineral Density 1.118 g/cm/cm,T score -0.5, compared to 0.4. It is noted that secondary to sc oliotic curvature, different levels were isolated for measurement on current and prior exam, making e xact comparison limited Left Hip: Bone Mineral Density 0.729 g/cm/cm,T score -2.2, compared to -2.0 Left Femoral Neck: Bone Mineral Density 0.730 g/cm/cm, T score -2.2, . -1.8 (T score greater or equal to -1.0: NORMAL) (T score from -1.1 to -2.4: OSTEOPENIA) (T score less than or equal to -2.5 to: OSTEOPOROSIS) Impression: Moderate to severe osteopenia within the left hip and femoral neck, progressive compared to prior exa m. Patients with diagnosis of osteoporosis or osteopenia should have regular bone mineral density assess ment. For those eligible for Medicare, routine testing is allowed once every 2 years. Testing frequ ency can be increased for patients who have rapidly progressing disease or for those who are receivin g medical therapy to restore bone mass. Reviewed by: Dominique Stallworth MD on 07/02/2022 2:35 PM PDT Approved by: Dominique Stallworth MD on 07/02/2022 2:35 PM PDT Station ID: [id number]
== END 2022-07-02 09:46 | disposition home or self-care (01) ==
LOC: DI 09:45
PROVIDERS: ATTEND Nurse Practitioner Family
DX: M85.89 Other specified disorders of bone density and structure, multiple sites (principal)

== ENCOUNTER 2024-02-10 09:11 | Outpatient (CLI) | payer MEDICARE ==
--- NOTE | 2024-02-11 08:45 | Mammography Report ---
BILATERAL DIGITAL SCREENING MAMMOGRAM 3D/2D: 02/10/2024 CLINICAL: Routine screening. Comparison is made to exams dated: 03/21/2022 mammogram, 07/18/2020 mammogram, 04/24/2019 mammogram, mammogram, 12/30/2017 mammogram, and 03/21/2016 mammogram - [facility]. Both breasts are heterogeneously dense, which may obscure small masses (category c / 51-75% glandular tissue). There is irregular architectural distortion in the left breast posterior depth superior region seen o n the mediolateral oblique view only. This is more prominent. No other significant masses, calcifications, or other findings are seen in either breast. IMPRESSION: INCOMPLETE: NEEDS ADDITIONAL IMAGING EVALUATION The irregular architectural distortion in the left breast is indeterminate. Additional views with po ssible ultrasound are recommended. Based on the Tyrer Cuzick model (a risk assessment model) the patient's lifetime risk is 6.5% and her 10 year risk is 5.3%. According to the ACR, ACS, and NCCN guidelines, an annual breast MRI exam veronica g with mammogram is recommended if the patient's lifetime risk is 20% or greater. This exam was interpreted at Station ID: [id number]. NOTE: For mammograms, a report in lay terms will be sent to the patient. Approximately 15% of breast malignancies will not be visualized mammographically. In the management of a palpable breast mass, a negative mammogram must not discourage biopsy of a clinically suspicious lesion. Electronically Signed By: Yanelis das/maite:02/10/2024 15:27:03 ACR BI-RADS Category 0: Incomplete 3340F PARENCHYMAL PATTERN: (D) - The breast(s) demonstrate(s) heterogeneously dense fibroglandular parenchy ma. BI-RADS CATEGORY: (0) - 0 Mammo and [place] [id number] Immediate follow-up LATERALITY: (B)
== END 2024-02-10 09:12 | disposition home or self-care (01) ==
LOC: DI 09:11
PROVIDERS: ATTEND Nurse Practitioner Family
DX: Z12.31 Encounter for screening mammogram for malignant neoplasm of breast (principal); R92.8 Other abnormal and inconclusive findings on diagnostic imaging of breast; R92.333 Mammographic heterogeneous density, bilateral breasts

== ENCOUNTER 2024-03-18 08:39 | Outpatient (CLI) | payer MEDICARE ==
--- NOTE | 2024-03-19 09:38 | Mammography Report ---
UNILATERAL LEFT DIGITAL DIAGNOSTIC MAMMOGRAM 3D/2D WITH EXAGGERATED CC LATEROMEDIAL: 03/18/2024 CLINICAL: Patient returns today to evaluate an architectural distortion in the left breast. Comparison is made to exams dated: 02/10/2024 mammogram, 03/21/2022 mammogram, 07/18/2020 mammogram, mammogram, 01/20/2018 mammogram, and 12/30/2017 mammogram - [facility]. The left breast is heterogeneously dense, which may obscure small masses (category c / 51-75% glandul ar tissue). There is architectural distortion in the left breast posterior depth superior region seen on the medi olateral oblique view only. This is seen in additional views. No other significant masses or calcifications are seen in the breast. IMPRESSION: INCOMPLETE: NEEDS ADDITIONAL IMAGING EVALUATION The architectural distortion in the left breast is indeterminate. An ultrasound is recommended. Thi s is likely lateral on XCCL view, but not as well seen. Based on the Tyrer Cuzick model (a risk assessment model) the patient's lifetime risk is 6.5% and her 10 year risk is 5.3%. According to the ACR, ACS, and NCCN guidelines, an annual breast MRI exam veronica g with mammogram is recommended if the patient's lifetime risk is 20% or greater. This exam was interpreted at Station ID: [id number]. NOTE: For mammograms, a report in lay terms will be sent to the patient. Approximately 15% of breast malignancies will not be visualized mammographically. In the management of a palpable breast mass, a negative mammogram must not discourage biopsy of a clinically suspicious lesion. Electronically Signed By: Milad Valdivia M.D. lc/:03/18/2024 09:34:20 ACR BI-RADS Category 0: Incomplete 3340F PARENCHYMAL PATTERN: (D) - The breast(s) demonstrate(s) heterogeneously dense fibroglandular parmike vargas. BI-RADS CATEGORY: (0) - 0 Ultrasound [id number] Immediate follow-up LATERALITY: (B)
--- NOTE | 2024-03-19 09:39 | Ultrasound Report ---
LIMITED ULTRASOUND OF LEFT BREAST: 03/18/2024 CLINICAL: Patient returns today to evaluate a focal asymmetry in the left breast. Comparison is made to exams dated: 03/18/2024 mammogram, 02/10/2024 mammogram, 03/21/2022 mammogram, 09/2020 mammogram, 04/24/2019 mammogram, and 01/20/2018 mammogram - [facility]. Ultrasound of the left breast 12-3 o'clock region was performed. Beck scale images of the real-time examination were reviewed. No significant abnormalities were seen sonographically in the left breast. Normal axillary findings on US. IMPRESSION: SUSPICIOUS OF MALIGNANCY There is no abnormality seen in the left breast to correspond with the mammography finding. The architectural distortion is suspicious. Stereotatic biopsy recommended, suggest lateral approach as this is better seen on ML view. Normal axillary findings on US. This exam was interpreted at Station ID: [id number]. Electronically Signed By: Milad Valdivia M.D. lc/:03/18/2024 09:35:52 Ultrasound BI-RADS: 4 Suspicious for malignancy BI-RADS CATEGORY: (4) - 4 Biopsy follow-up [id number] Immediate follow-up LATERALITY: (B)
== END 2024-03-18 08:40 | disposition home or self-care (01) ==
LOC: DI 08:39
PROVIDERS: ATTEND Nurse Practitioner Family
DX: R92.8 Other abnormal and inconclusive findings on diagnostic imaging of breast (principal); R92.332 Mammographic heterogeneous density, left breast

== ENCOUNTER 2024-03-31 08:15 | Outpatient (CLI) | payer MEDICARE ==
[2024-03-31] MEDS ORDERED: LIDOCAINE-MPF 1% 5 ML VIAL ONE (08:17)
[2024-03-31] MEDS ORDERED: LIDOCAINE 1%-EPI 1:100000 20 ML MDV ONE (08:18)
[2024-03-31] MEDS: LIDOCAINE 1%-EPI 1:100000 20 ML MDV SUBQ ONE (10:07)
[2024-03-31] MEDS: LIDOCAINE-MPF 1% 5 ML VIAL TD ONE (10:08)
--- NOTE | 2024-04-08 10:59 | Mammography Report ---
DIGITAL TOMOGRAPHIC MAMMOGRAPHY GUIDED STEREOTACTIC GUIDED BIOPSY LEFT BREAST USING VACUUM DEVICE WIT H MARKING DEVICE INSERTED AND POST DIGITAL MAMMOGRAPHIC IMAGING- - LEFT BREAST POST-PROCEDURE IMAGING FOR MARKER PLACEMENT: 03/31/2024 CLINICAL: Left breast stereotactic biopsy of architectural distortion, clip placement imaging. Correlation is made to exams dated: 03/18/2024 mammogram, 02/10/2024 mammogram, 03/21/2022 mammogram, mammogram, 04/24/2019 mammogram, and 01/20/2018 mammogram - [facility]. A stereotactic guided biopsy was performed for the area of architectural distortion located in the le ft breast at 2 o'clock posterior depth. This was described on the previous mammography report. The skin was prepped in the usual manner. Local anesthetic was administered to the access site. A skin vinicio was made in the breast. The abnormality was approached from the lateral aspect using an upright digital tomographic mammography unit. A biopsy needle was placed adjacent to the abnormality under computer guidance and confirmatory stereotactic mammography images were obtained to document needle p lacement. Once the needle was documented to be in the correct location, six cores were obtained usin g a vacuum assisted device. The patient received additional local anesthetic during the procedure. A titanium clip was inserted into the biopsy cavity. A skin adhesive and a sterile dressing were yani lied to the access site. Post procedure digital mammographic imaging demonstrates the location devic e 0.6cm lateral from the geometric center of the targeted area. The specimens were sent to the labor atory for pathological analysis. IMPRESSION: STEREOTACTIC GUIDED BIOPSY BENIGN Stereotactic guided biopsy of the area of architectural distortion in the left breast at 2 o'clock po sterior depth was successful with no apparent post procedure complications. Pathology indicates benign "fatty breast tissue with densely fibrous zones and atrophic ducts". Path ology results are concordant with imaging findings. A follow-up mammogram in 6 months is recommended to demonstrate stability. This exam was interpreted at Station ID: [id number]. Jagdeep Hogue M.D., Ph.D. [facility] [place]:04/08/2024 10:34:30 BI-RADS CATEGORY: () - Mammogram [id number] 6 month follow-up LATERALITY: (B)
== END 2024-03-31 08:16 | disposition home or self-care (01) ==
LOC: DI 08:15
PROVIDERS: ATTEND Nurse Practitioner Family
DX: N64.2 Atrophy of breast (principal)
CPT/HCPCS: 19081